=== PATIENT | female | born 1975 | race Caucasian/White ===

== ENCOUNTER 2022-11-25 11:52 | Emergency (ER) | payer BC ==
--- OUTSIDE RECORDS SUMMARY | 2022-11-25 11:58 | XMS REPORT | Continuity of Care Document ---
:1975 Author Organization [facility] t Address [address] [place] [address] Care Team Providers Name Role Phone SLIM COFFMAN Attending Clinician Unavailable Fazal Attending Clinician Unavailable Mitchell Kim Attending Clinician Unavailable Guadalupe Broderick Attending Clinician Unavailable Abbey Armas Attending Clinician Unavailable KOMAL RANGEL Attending Clinician Unavailable Aba Thompson Attending Clinician ABA THOMPSON Attending Clinician Unavailable Lee Ann Patel Attending Clinician Unavailable Fazal Admitting Clinician Unavailable KNOW, DOES_NOT Admitting Clinician Unavailable Guadalupe Broderick Admitting Clinician Unavailable Abbey Armas Admitting Clinician Unavailable Aba Thompson Admitting Clinician ABA THOMPSON Admitting Clinician Unavailable Physician, No Primary or Family Admitting Clinician Unavaila ble Payers Payer Name Policy Type Policy Number Effective Date Expiration Date S aba BCBSTX PPO AND [id number] 2020 2024 00:00:00 OUT OF STATE 00:00:00 [place] [id number] 2020 [place] 00:00:00 Problems Condition Condition Condition Status Onset Resolution Last Treating Co mments Source Name Details Category Date Date Treatment Clinician Date Venous Venous Disease Active [facility] thromboemb thromboemb 6-10 He alth olism olism 00:00: 00 Obesity Obesity Disease Active [facility] (BMI (BMI 6-10 Health 30-39.9) 30-39.9) 00:00: 00 PULMONARY PULMONARY Diagnosis Active 2020-07-02 Memoria EMBOLI EMBOLI 07-01 08:55:00 l Active 13:43: Mclean 07/01/2020 00 [facility] CHEST PAIN CHEST Diagnosis Active 2020-07-01 Memoria PAIN 07-01 20:07:00 l Active 13:43: [facility] - Diagnosis Active 2013-12-01 Memoria LUMBOSACRA LUMBOSACRA 10-10 15:58:00 l L SPO L SPO 00:01: Mclean Active 00 10/10/2013 [facility] [place] Obesity, Obesity, Diagnosis Active 2014-02-13 Memoria unspecifie unspecifie 04:10:55 l d d Active Kareem Diagnosis 02/13/2014 [facility] Screening Screening Diagnosis Active 2014-02-13 Memoria for for 04:10:55 l tobacco tobacco Mclean use use Active Diagnosis 02/13/2014 [facility] Lumbosacra Problem Active 2014-02-13 M emoria l Lumbosacra 04:10:55 l spondylosi l Christian n s without spondylosi myelopathy s without myelopathy Active Problem 02/13/2014 [facility] Lumbar Lumbar Problem Active 2014-02-13 Fab zayra sprain and sprain and 04:10:55 l strain strain Kareem Active Problem 02/13/2014 [facility] Degenerati Degenerat Problem Active 2014-02-13 Memoria on of ion of 04:10:55 l lumbar or lumbar or Herm sidney lumbosacra lumbosacra l l interverte interverte bral disc bral disc Active Problem 02/13/2014 [facility] OTHER OTHER Diagnosis Active 2020-07-02 Mem oria PULMONARY PULMONARY 08:55:00 l EMBOLISM EMBOLISM Christian n WITHOUT WITHOUT ACUTE C ACUTE C Active [facility] Allergies, Adverse Reactions, Alerts Allergy Allergy Status Severity Reaction(s) Onset Inactive Treating Comm ents Source Name Type Date Date Clinician No Known DA Active [facility]24 [place] [facility] No Known DA Active [facility] [place] N[facility] N.K.D.A. Active Info Not Fab zarya Available 11-28 l 00:00: Kareem 00 No Known DA Active [facility] 03-26 [place] [facility] 00:[facility] No Known DA Active [facility] 03-26 [place] [facility] No Known No Known Active Memori a Medicati Medicati l on on Mclean Allergie Allergie s s Social History Social Habit Start Date Stop Date Quantity Comments Source Sexual orientation Method [facility] Gender identity [facility] Alcohol intake 2020-08-12 2020-08-12 Lifetime [facility] 00:00:00 00:00:00 non-drinker (finding) Tobacco use and 2020-08-12 2020-08-12 Never used [facility] exposure 00:00:00 00:00:00 Educationhistory 2014-01-09 2014-01-[address] [facility] 00:00:00 00:00:00 Kareem Sex Ass[birth year] At [birth year] [facility] 00:00:00 00:00:00 Hospital Smoking Status Start Date Stop Date Source Tobacco smoking consumption unknown [facility] Social History [facility] Medications Ordered Filled Start Stop Current Ordering Indication Dosage Frequency Signature Comments Components Source Medication Medication Date Date Medication? Clinician (SIG) Name Name levocetiriz Yes 5mg Take 5 mg U T ine (Xyzal) 6-10 by mouth 1 He alth 5 MG tablet 20:05: (one) time 21 each day in the evening. azelastine Yes .1{spra Administer [place] (Astelin) 6-10 y} 0.1 sprays Heal th 0.1 % nasal 20:03: into each spray 58 nostril every night. eletriptan Yes 40mg Take 40 mg U T (Relpax) 40 6-10 by mouth Heal th MG tablet 20:03: if needed. 58 norethindro Yes .35mg QD Take 0.35 UT ne 6-08 mg by [facility] (Micronor) 00:00: mouth 1 0.35 MG 00 (one) time tablet each day. Xarelto 20 Yes 20mg QD Take 20 mg U T MG tablet 5-21 by mouth 1 Heal th 00:00: (one) time 00 each day. { Yes 1 tab, PO, Memoria (rivaroxaba 4-30 BID-Meals, l n 15 MG 17:22: Take 15 mg Herm sidney Oral Tablet 00 tablets [Xarelto]) twice / 9 daily with (rivaroxaba food for n 20 MG 21 days. Oral Tablet Beginning [Xarelto]) day } Pack 22,take [Xarelto one 20 mg Kit] tablet daily with food for the remainder of therapy., X 30 day, # 1 pkt, 0 Refill(s), Pharmacy: [facility] #[id number], [id number], , 07/01/... { Yes 1 tab, PO, Memoria (rivaroxaba 4-30 BID-Meals, l n 15 MG 17:22: Take 15 mg Herm sidney Oral Tablet 00 tablets [Xarelto]) twice / 9 daily with (rivaroxaba food for n 20 MG 21 days. Oral Tablet Beginning [Xarelto]) day } Pack 22,take [Xarelto one 20 mg Kit] tablet daily with food for the remainder of therapy., X 30 day, # 1 pkt, 0 Refill(s), Pharmacy: [facility] #[id number], 162.56, , 07/01/... { Yes 1 tab, PO, Memoria (rivaroxaba 4-30 BID-Meals, l n 15 MG 17:22: Take 15 mg Herm sidney Oral Tablet 00 tablets [Xarelto]) twice / 9 daily with (rivaroxaba food for n 20 MG 21 days. Oral Tablet Beginning [Xarelto]) day } Pack 22,take [Xarelto one 20 mg Kit] tablet daily with food for the remainder of therapy., X 30 day, # 1 pkt, 0 Refill(s), Pharmacy: [facility] #[id number], 909.56, cm, 07/01/... rivaroxaban No Notes: Fab zayra 4-30 (Same as: l 14:00: Xarelto) Mclean 00 Administer with food Lovenox 0 No Notes: Memoria 4-30 Nurse to l 14:00: ensure Mclean 00 documentat ion of patient education per anticoagul ation policy. (Same as: Lovenox) rivaroxaban No Notes: Fab zayra 4-30 (Same as: l 14:00: Xarelto) Kareem 00 Administer with food Lovenox 0 No Notes: Memoria 4-30 Nurse to l 14:00: ensure Kareem 00 documentat ion of patient education per anticoagul ation policy. (Same as: Lovenox) rivaroxaban No Notes: Fab zayra 4-30 (Same as: l 14:00: Xarelto) Mclean 00 Administer with food Lovenox 0 No Notes: Memoria 4-30 Nurse to l 14:00: ensure Kareem 00 documentat ion of patient education per anticoagul ation policy. (Same as: Lovenox) ketOROLAC 2020-0 No 4 days Memor ia 15 mg/mL 4-30 l injectable 05:00: MEDICATION H ermann solution 00 WASTE Product Size: 30 mg Product Wasted: ___ mg ketOROLAC 2020-0 No 4 days Memor ia 15 mg/mL 4-30 l injectable 05:00: MEDICATION H ermann solution 00 WASTE Product Size: 30 mg Product Wasted: ___ mg ketOROLAC 2020-0 No 4 days Memor ia 15 mg/mL 4-30 l injectable 05:00: MEDICATION H ermann solution 00 WASTE Product Size: 30 mg Product Wasted: ___ mg Azelastine 2020- Yes 137 Memoria hydrochlori 4-30 microgram l de 0.137 04:07: =, Mclean MG/ACTUAT 00 INHALER, Metered PRN, PRN Dose Nasal Congestion Becker | 1-2 sprays, # 1 ea, 0 Refill(s) Azelastine Yes 137 Memoria hydrochlori 4-30 microgram l de 0.137 04:07: =, Kareem MG/ACTUAT 00 INHALER, Metered PRN, PRN Dose Nasal Congestion Becker | 1-2 sprays, # 1 ea, 0 Refill(s) Azelastine Yes 137 Memoria hydrochlori 4-30 microgram l de 0.137 04:07: =, Kareem MG/ACTUAT 00 INHALER, Metered PRN, PRN Dose Nasal Congestion Becker | 1-2 sprays, # 1 ea, 0 Refill(s) valacyclovi Yes 500 mg = 1 Memoria r 500 MG 4-30 tab, PO, l Oral Tablet 04:06: PRN, 0 Herm sidney [Valtrex] 00 Refill(s) valacyclovi Yes 500 mg = 1 Memoria r 500 MG 4-30 tab, PO, l Oral Tablet 04:06: PRN, 0 Herm sidney [Valtrex] 00 Refill(s) valacyclovi Yes 500 mg = 1 Memoria r 500 MG 4-30 tab, PO, l Oral Tablet 04:06: PRN, 0 Herm sidney [Valtrex] 00 Refill(s) eletriptan Yes 40 mg = 1 Me moria 40 MG Oral 4-30 tab, PO, l Tablet 04:05: PRN, 0 Mclean [Relpax] 00 Refill(s) eletriptan Yes 40 mg = 1 Me moria 40 MG Oral 4-30 tab, PO, l Tablet 04:05: PRN, 0 Mclean [Relpax] 00 Refill(s) eletriptan Yes 40 mg = 1 Me moria 40 MG Oral 4-30 tab, PO, l Tablet 04:05: PRN, 0 Mclean [Relpax] 00 Refill(s) {24 No 1 tab, PO, Memoria (Ethinyl 4-30 Daily, 0 l Estradiol 04:04: Refill(s) Her taylor 0.02 MG / 00 norethindro ne acetate 1 MG Oral Tablet) / 4 (Ferrous fumarate 75 MG Oral Tablet) } Pack [August Fe 03/24] { No 1 tab, PO, Memoria (Ethinyl 4-30 Daily, 0 l Estradiol 04:04: Refill(s) Her taylor 0.02 MG / 00 norethindro ne acetate 1 MG Oral Tablet) / 4 (Ferrous fumarate 75 MG Oral Tablet) } Pack [August 03/24] { No 1 tab, PO, Memoria (Ethinyl 4-30 Daily, 0 l Estradiol 04:04: Refill(s) Her taylor 0.02 MG / 00 norethindro ne acetate 1 MG Oral Tablet) / 4 (Ferrous fumarate 75 MG Oral Tablet) } Pack [August 03/24] Dextrose No 12.5 gm, Memor ia 50% Syringe 30 25 mL, l (D50W) 02:46: Route: IVP, Drug Form: INJ, Dosing Weight 81.364, kg, PRN, PRN Blood Glucose Results, Start date: 07/01/20 21:46:00 CDT, Duration: 30 day, Stop date: 07/31/20 21:45:00 CDT, 0 Glucagon No 1 mg, Memoria 07-02 Route: IM, l 02:46: Drug form: PDR/INJ, PRN, Dosing Weight 81.364, kg, PRN Blood Glucose Results, Start date: 07/01/20 21:46:00 CDT, Duration: 30 day, Stop date: 07/31/20 21:45:00 CDT, 0 Ondansetron No Notes: Fab zayra -30 (Same as: l 02:46: Zofran) MEDICATION WASTE Product Size: 4 mg Product Wasted: ___ mg Melatonin No Notes: Memori a -30 (Same as: l 02:46: Melatonin) Acetaminoph No Notes: Do M emoria en 07-02 not exceed l 02:46: 4 gm/day. (Same as: Tylenol) Dextrose 2021-0 No 12.5 gm, Memor ia 50% Syringe 4-30 25 mL, l (D50W) 02:46: Route: Mclean 00 IVP, Drug Form: INJ, Dosing Weight 81.364, kg, PRN, PRN Blood Glucose Results, Start date: 07/01/20 21:46:00 CDT, Duration: 30 day, Stop date: 07/31/20 21:45:00 CDT, 0 Glucagon No 1 mg, Memoria 30 Route: IM, l 02:46: Drug form: Mclean PDR/INJ, PRN, Dosing Weight 81.364, kg, PRN Blood Glucose Results, Start date: 07/01/20 21:46:00 CDT, Duration: 30 day, Stop date: 07/31/20 21:45:00 CDT, 0 Ondansetron No Notes: Fab zayra 4-30 (Same as: l 02:46: Zofran) MEDICATION WASTE Product Size: 4 mg Product Wasted: ___ mg Melatonin No Notes: Memori a 4-30 (Same as: l 02:46: Melatonin) Acetaminoph No Notes: Do M emoria en 4-30 not exceed l 02:46: 4 gm/day. (Same as: Tylenol) Dextrose No 12.5 gm, Memor ia 50% Syringe 4-30 25 mL, l (D50W) 02:46: Route: IVP, Drug Form: INJ, Dosing Weight 81.364, kg, PRN, PRN Blood Glucose Results, Start date: 07/01/20 21:46:00 CDT, Duration: 30 day, Stop date: 07/31/20 21:45:00 CDT, 0 Glucagon No 1 mg, Memoria 4-30 Route: IM, l 02:46: Drug form: Kareem 00 PDR/INJ, PRN, Dosing Weight 81.364, kg, PRN Blood Glucose Results, Start date: 07/01/20 21:46:00 CDT, Duration: 30 day, Stop date: 07/31/20 21:45:00 CDT, 0 Ondansetron No Notes: Fab zayra 07-02 (Same as: l 02:46: Zofran) MEDICATION WASTE Product Size: 4 mg Product Wasted: ___ mg Melatonin No Notes: Memori a 07-02 (Same as: l 02:46: Melatonin) Acetaminoph No Notes: Do M emoria en 07-02 not exceed l 02:46: 4 gm/day. Mclean 00 (Same as: Tylenol) Lovenox No Notes: Memoria 07-02 Nurse to l 02:17: ensure Kareem 00 documentat ion of patient education per anticoagul ation policy. (Same as: Lovenox) Lovenox No Notes: Memoria 07-02 Nurse to l 02:17: ensure Kareem 00 documentat ion of patient education per anticoagul ation policy. (Same as: Lovenox) Lovenox No Notes: Memoria 07-02 Nurse to l 02:17: ensure Mclean 00 documentat ion of patient education per anticoagul ation policy. (Same as: Lovenox) Ketorolac No 4 days Memor ia 07-01 l 23:53: MEDICATION WASTE Product Size: 30 mg Product Wasted: ___ mg Morphine No 4 mg, 2 Memori a 4-29 mL, Route: l 23:53: IVP, Drug form: SOLN, ONCE, Dosing Weight 81.364, kg, Priority: STAT, Start date: 07/01/20 18:53:00 CDT, Stop date: 07/01/20 18:53:00 CDT, 0 Ketorolac No 4 days Memor ia 29 l 23:53: MEDICATION WASTE Product Size: 30 mg Product Wasted: ___ mg Morphine No 4 mg, 2 Memori a 4-29 mL, Route: l 23:53: IVP, Drug form: SOLN, ONCE, Dosing Weight 81.364, kg, Priority: STAT, Start date: 07/01/20 18:53:00 CDT, Stop date: 07/01/20 18:53:00 CDT, 0 Ketorolac No 4 days Memor ia 4-29 l 23:53: MEDICATION WASTE Product Size: 30 mg Product Wasted: ___ mg Morphine No 4 mg, 2 Memori a 4-29 mL, Route: l 23:53: IVP, Drug form: SOLN, ONCE, Dosing Weight 81.364, kg, Priority: STAT, Start date: 07/01/20 18:53:00 CDT, Stop date: 07/01/20 18:53:00 CDT, 0 Saline No Notes: Memoria Flush 0.9% 4-29 (Same as: l 19:01: BD Kareem 00 Posiflush) Saline No Notes: Memoria Flush 0.9% 4-29 (Same as: l 19:01: BD Mclean 00 Posiflush) Saline No Notes: Memoria Flush 0.9% 4-29 (Same as: l 19:01: BD Mclean 00 Posiflush) Minastrin 2013-03 Yes Manuel 1 tablet Me moria 24 fe 2-12 [facility] 04:10[facility] Memor ia 2-12 Fayle l 04:10: Mclean 55 Aleve 2013-03 Yes Manuel 3 tablets Memor ia 2-12 Fayle l 04:10: Kareem 55 ZyrTEC 2013-03 Yes Manuel 1 tablet Memor ia 2-12 Fayle l 04:10: Aleve 2013-03 Yes Manuel 3 tablets Memor ia 2-12 Fayle l 04:10: Kareem 55 Minastrin 2013-03 Yes Manuel 1 tablet Me moria 24 fe 2-12 Fayle l 04:10: Mclean 55 Minastrin 2013-03 Yes Manuel 1 tablet Me moria 24 fe 2-12 Fayle l 04:10: Mclean 55 yrTEC 2013-03 Yes Manuel 1 tablet Memor ia 2-12 Fayle l 04:10: Mclean 55 Aleve 2013-03 Yes Manuel 3 tablets Memor ia 2-12 Fayle l 04:10: Mclean 55 Tramadol Yes Manuel one tab Fab zayra 9-26 Fayle l 00:00: Mclean Valium Yes Manuel 1 tablet Memor ia 9-26 Fayle as needed l 00:00: Kareem 00 Tramadol Yes Manuel one tab Fab zayra 9-26 Fayle l 00:00: Mclean Valium Yes Manuel 1 tablet Memor ia 9-26 Fayle as needed l 00:00: Kareem 00 Tramadol Yes Manuel one tab Fab zayra 9-26 Fayle l 00:00: Mclean Valium Yes Manuel 1 tablet Memor ia 9-26 Fayle as needed l 00:00: Mclean 00 Immunizations Ordered Filled Immunization Date Status Comments Sourc e Immunization Name Name FLUCELVAX QUAD PF 2020-11-[address] [facility] FLUCELVAX QUAD PF 2020-11-[address] [facility] FLUCELVAX QUAD PF Unknown [facility] Vital Signs Vital Name Observation Time Observation Value Comments Source Systolic blood 2020-08-12 19:58:00 123 mm[Hg[facility] Diastolic blood 2020-08-12 19:58:00 77 mm[Hg] [facility] Heart rate 2020-08-12 19:58:00 102 /min [facility] Respiratory rate 2020-08-12 19:58:00 16 /[facility] Body height 2020-08-12 19:58:00 162.6 cm [facility] Body weight 2020-08-12 19:58:00 85.095 [facility] BMI 2020-08-12 19:58:00 32.20 [facility]m2 [facility] Systolic (mm Hg) 2020-07-02 16:18:00 Fab rial Mclean Diastolic (mm Hg) 2020-07-02 16:18:00 Mem orial Kareem Respitory Rate 2020-07-02 16:18:00 Memori al Kareem Temperature Oral (F) 2020-07-02 16:18:00 98.1 F [facility] Mclean Systolic (mm Hg) 2020-07-02 13:07:00 Fab rial Kareem Diastolic (mm Hg) 2020-07-02 13:07:00 Mem orial Kareem Respitory Rate 2020-07-02 13:07:00 Memori al Kareem Temperature Oral (F) 2020-07-02 08:38:00 97.8 F Memorial Kareem Systolic (mm Hg) 2020-07-02 08:21:00 Fab rial Kareem Diastolic (mm Hg) 2020-07-02 08:21:00 Mem orial Kareem Temperature Oral (F) 2020-07-02 08:21:00 97.8 F [facility] Mclean Respitory Rate 2020-07-02 05:00:00 Memori al Kareem Height 2020-07-02 04:13:00 162.56 cm [facility] Kareem Weight 2020-07-02 04:13:00 [facility] Mclean BMI Calculated 2020-07-02 04:13:00 Memori al Kareem Heart Rate 2020-07-02 01:31:00 [facility] Mclean Height 2020-07-01 18:53:00 162.56 cm [facility] Mclean BMI Calculated 2020-07-01 18:53:00 Memori al Kareem Weight 2020-07-01 18:53:00 [facility] Mclean Heart Rate 2020-07-01 18:53:00 [facility] Kareem Weight 2013-11-28 15:00:00 [facility] Mclean Height 2013-11-28 15:00:00 [facility] Mclean Weight 2013-10-10 20:15:00 [facility] Kareem Height 2013-10-10 20:15:00 [facility] Kareem Procedures This patient has no known procedures. Plan of Care Planned Activity Planned Date Details Comments Source Future Scheduled 2022-11-06 [facility] Test 04:48:31 SCREENING [code = BREAST CANCER SCREENING] Future Scheduled 2022-11-06 Screening for [facility] Test 04:48:31 malignant neoplasm of colon (procedure) [code = 993564043] Future Scheduled 2022-11-06 [facility] Test 04:48:31 malignant neoplasm of colon (procedure) [code = 913193666] Future Scheduled 2022-11-06 [facility] 04:48:31 Moderna series) [code = COVID-19 VACCINE (2 - Moderna series)] Future Scheduled 2022-11-06 [facility]UENZA [facility]ACCINE [facility] 04:48:31 (#1) [code = INFLUENZA VACCINE (#1)] Future Scheduled 2022-11-06 [facility] 04:48:31 malignant neoplasm of colon (procedure) [code = 809915564] Future Scheduled 2022-11-06 [facility] 04:48:31 malignant neoplasm of colon (procedure) [code = 474036775] Future Scheduled 2022-11-06 [facility] Test 04:48:31 malignant neoplasm of colon (procedure) [code = 827361797] Future Scheduled 2022-11-06 [facility] Test 04:48:31 malignant neoplasm of cervix (procedure) [code = 188193710] Future Scheduled 2022-10-05 [facility] Test 23:50:12 malignant neoplasm of colon (procedure) [code = 843809505] Future Scheduled 2022-10-05 [facility] 23:50:12 malignant neoplasm of colon (procedure) [code = 902378324] Future Scheduled 2022-10-05 [facility] 23:50:12 malignant neoplasm of colon (procedure) [code = 335324774] Future Scheduled 2022-10-05 [facility] 23:50:12 malignant neoplasm of cervix (procedure) [code = 917182631] Future Scheduled 2022-10-05 [facility]ER [facility] Test 23:50:12 SCREENING [code = BREAST CANCER SCREENING] Future Scheduled 2022-10-05 [facility] Test 23:50:12 malignant neoplasm of colon (procedure) [code = 048582535] Future Scheduled 2022-10-05 [facility] 23:50:12 malignant neoplasm of colon (procedure) [code = 035791712] Future Scheduled 2022-10-05 COVID-19 VACCINE (2 - [facility] 23:50:12 Moderna series) [code = COVID-19 VACCINE (2 - Moderna series)] Future Scheduled 2022-10-05 [facility]ZA [facility]ACCINE [facility] 23:50:12 [code = INFLUENZA VACCINE] Future Scheduled 2022-03-13 [facility]ZA [facility]ACCINE [facility] 10:01:14 [code = INFLUENZA VACCINE] Future Scheduled 2022-03-13 [facility] 10:01:14 malignant neoplasm of cervix (procedure) [code = 747914535] Future Scheduled 2022-03-13 [facility] 10:01:14 SCREENING [code = BREAST CANCER SCREENING] Future Scheduled 2022-03-13 COLONOSCOPY SCREENING [facility] Test 10:01:14 [code = COLONOSCOPY SCREENING] Future Scheduled 2022-03-13 COVID-19 VACCINE (2 - [facility] Test 10:01:14 Moderna series) [code = COVID-19 VACCINE (2 - Moderna series)] Encounters Start End Encounter Admission Attending Care Care Encounter Source Date/Time Date/Time Type Type Clinicians Facility Department ID 2021-08-25 Outpatient [facility] [id number] [place] 09:44:07 [id number] [facility] 2021-08-08 Outpatient [facility] [id number] [place] 11:53:43 [id number] [facility] 2021-07-06 Outpatient [facility] [id number] [place] 16:52:27 [id number] [facility] 2020-08-12 Outpatient MEGHNA [facility] [id number] [place] 15:27:43 [facility] 2020-07-10 [facility] [id number] [place] 03:11:37 [facility] 2022-11-16 2022-11-16 Outpatient FOG_Burke_R AOSM AOSM [id number] Merle 00:00:00 00:00:00 Caleb [id number] [facility] 2022-10-30 2022-10-30 Outpatient FOG_Burke_R AOSM AOSM [id number] Merle 00:00:00 00:00:00 Caleb [id number] [facility] 2022-10-30 2022-10-30 Outpatient FOG_Burke_R AOSM AOSM [id number] Merle 00:00:00 00:00:00 Caleb [id number] [facility] 2022-10-30 2022-10-30 Outpatient FOG_Burke_R AOSM AOSM [id number] Merle 00:00:00 00:00:00 Caleb [id number] [facility] 2022-10-25 2022-10-25 Outpatient JOSE EDUARDO Kim [facility] [id number] [facility] 09:30:00 09:30:00 [place] [facility] 2022-09-28 2022-09-28 Outpatient FOG_Burke_R AOSM AOSM [id number] Merle 00:00:00 00:00:00 Caleb [id number] [facility] 2022-09-28 2022-09-28 Outpatient FOG_Burke_R AOSM AOSM [id number] Merle 00:00:00 00:00:00 Caleb [id number] [facility] 2022-09-27 2022-09-27 Outpatient FOG_Burke_R AOSM AOSM [id number] Merle 00:00:00 00:00:00 Caleb [id number] [facility] 2022-09-26 2022-09-26 Outpatient FOG_Burke_R AOSM AOSM [id number] Merle 00:00:00 00:00:00 Caleb [id number] [facility] 2022-09-15 2022-09-15 Outpatient FOG_Burke_R AOSM AOSM [id number] Merle 00:00:00 00:00:00 Caleb [id number] [facility] 2022-09-15 2022-09-15 Outpatient FOG_Burke_R AOSM AOSM [id number] Merle 00:00:00 00:00:00 Caleb [id number] [facility] 2022-09-13 2022-09-13 Outpatient FOG_Burke_R AOSM AOSM [id number] Merle 00:00:00 00:00:00 Caleb [id number] [facility] 2022-09-13 2022-09-13 Outpatient FOG_Burke_R AOSM AOSM [id number] Merle 00:00:00 00:00:00 Caleb [id number] [facility] 2022-09-12 2022-09-12 Outpatient FOG_Burke_R AOSM AOSM [id number] Merle 00:00:00 00:00:00 Caleb [id number] [facility] 2022-03-09 2022-03-09 Outpatient JOSE EDUARDO Broderick [facility] JOYCELYN LA[id number] [facility] 12:00:00 12:00:00 Guadalupe 61 [facility] 2021-09-08 2021-09-09 Inpatient JOSE EDUARDO Broderick [facility] [id number] [facility] 11:20:00 10:52:00 Gu[place]upe [id number] [facility] 2021-09-06 2021-09-09 In[address] EDUARDO [facility] [id number] [facility] 12:30:00 10:52:00 Guadalupe [address] [facility] [address] [facility] 2021-03-03 2021-03-03 Outpatient Abbey Ross [facility] JOYCELYN LA0 [id number] [facility] 12:00:00 12:00:00 12 [facility] 2020-11-25 2020-11-25 Outpatient JUAN CARLOS, [facility] [id number] [place] 00:00:00 00:00:00 KOMAL hooks 2020-08-12 2020-08-12 Office ELIOT Coffman [facility] [id number] [place] 14:54:12 15:09:12 Visit Slim [facility] [id number] [id number] 2020-07-01 2020-07-02 Observatio nullFlavo [facility] [id number] Memoria 18:43:46 18:00:00 n r Kareem 00 l [facility] 2020-07-01 2020-07-02 Observatio nullFlavo [facility] 8519 [id number] Memoria 18:43:46 18:00:00 n r Kareem 00 l [facility] 2020-07-01 2020-07-[address] [id number] 13:43:46 13:00:00 Aba 00 2020-07-01 2020-07-02 Outpatient DonnaYAMELPL [facility] [id number] 13:43:46 13:00:00 Aba 2020-07-01 2020-07-02 Outpatient E DELIA, YAMELBL MED [id number] [facility] 13:43:00 13:00:00 ABA 2019-09-26 2019-09-26 Outpatient JOSE EDUARDO Patel, HCAPM JOYCELYN [id number] [facility] 12:00:00 12:00:00 Lee Ann Giang [facility] 2013-11-28 2013-11-28 CONFIRMED nullFlavo Varina [id number] 31-9 Memoria 15:00:00 15:00:00 r Neurologica [id number]-9 l l [place] [id number] H ermann [id number] 2013-11-28 2013-11-28 CONFIRMED nullFlavo [place] 56fec8 f3-f Memoria 15:00:00 15:00:00 r Neurologica [id number] l l [place] [id number] H ermann [id number] 2013-11-28 2013-11-28 CONFIRMED nullFlavo [place] 56fec8 f3-f Memoria 15:00:00 15:00:00 r Neurologica [id number] l l [place] [id number]-[id number] H ermann [id number] 2013-11-28 2013-11-28 CONFIRMED nullFlavo [place] [id number] 31-9 Memoria 15:00:00 15:00:00 r Neurologica [id number]-9 l l [place] [id number] H ermann 802c61 2013-11-28 2013-11-28 Outpatient [facility] [id number] eClinic 09:00:00 09:00:00 Neurologi Neurologica alWorks gisell l [place] 2013-10-10 2013-10-10 lvm to cb nullFlavo [place] [id number] 6a-f Memoria 20:15:00 20:15:00 r Neurologica 8e1-61pm-l l l [place] [id number] ermann b92b2e 2013-10-10 2013-10-10 lvm to cb nullFlavo [place] 288f3a 33-9 Memoria 20:15:00 20:15:00 r Neurologica [id number]-b l l [place] [id number] Ashutosh brody [id number] 2013-10-10 2013-10-10 [facility] [place] 288f3a 33-9 Memoria 20:15:00 20:15:00 r Neurologica 867-465c-b l l [place] [id number]-620bvy Ashutosh brody 0b9b70 2013-10-10 2013-10-10 [facility] [place] [id number] 6a-f [facility] 20:15:00 20:15:00 r Neurologica 4r9-73lh-r l l [place] [id number] Ashutosh brody b92b2e 2013-10-10 2013-10-10 Outpatient [facility] [id number] eClinic 14:15:00 14:15:00 Neurologi Neurologica alWorks [facility] [place] Results Test Description Test Time Test Comments Results Result [facility] e Comments - XR FLUORO FOR 2022-10-30 SPINE INJ 17:31:00 [facility] 1975 Sex: F Patient Name: HUSSAIN PEARCE Unit No: [id number] EXAMS: CPT CODE: [id number] XR FLUORO FOR SPINE INJ [id number] DIAGNOSTIC CERVICAL TRANSFORAMINAL EPIRADICULAR INJECTION PREOPERATIVE DIAGNOSIS: Cervical radiculitis.. POSTOPERATIVE DIAGNOSIS: Same as above PROCEDURES PERFORMED: Fluoroscopically guided needle localization of the right C6 spinal nerve with transforaminal epidurogram and epidural injection of local anesthetic and steroid. FINDINGS: Preinjection VAS 7/10. Postinjection VAS 0/10. Steroid response pending follow-up. ESTIMATED BLOOD LOSS: Minimal ANESTHESIA: TIVA COMPLICATIONS: None. DETAILS OF PROCEDURE: After obtaining stable vital signs, informed consent and IV access, with no contraindications, the patient was taken to the operating room and placed in a 15 degree head up supine position with all extremities padded and appropriate monitors placed. The patient was sterilely prepped and draped over the neck. Using fluoroscopic visualization, the insertion site was marked for anterolateral paravertebral approach and using standard technique, a 27 gauge needle was advanced until contacting the corresponding superior articular process without paresthesias. Isovue-300 contrast 0.5 mL was injected incrementally with digital subtraction to produce the epidurogram. There were no signs of intravascular or intrathecal uptake. Lidocaine 4% 0.8 mL with Decadron 8 mg was then injected incrementally with frequent negative aspirations. Again, there were no signs of intravascular or intrathecal uptake. The needle was removed and the patient was taken to the PACU in good condition. Image: Image 1 at 1731 Reported and signed by: ANU UNGER MD CC: Mitchell Kim MD Technologist: BOBO FORBES ARRT Transcribed D/ (173) [facility] [place] NAME: HUSSAIN PEARCE [address] [facility] PHYS: Mitchell Bernal MD [place], [place] [address] : 1975 AGE: 47 SEX: F LOC: [place] PHONE #: [phone] EXAM DATE: 10/25/2022 STATUS: [facility] FAX #: [phone] RAD #: D/C DT PAGE 1 Signed Report Patient Name: HUSSAIN PEARCE Unit No: [id number] EXAMS: CPT CODE: [id number] XR FLUORO FOR SPINE INJ 62863 (Continued) Orig Print D/T: S: 10/30/2022 (173) [facility] NAME: HUSSAIN PEARCE [address] [facility] PHYS: Mitchell Bernal MD [place], [place] [address] : 1975 AGE: 47 SEX: F LOC: [place] PHONE #: [phone] EXAM DATE: 10/25/2022 STATUS: [facility] FAX #: [phone] RAD #: D/C DT PAGE 2 Signed Report SURGICAL 2021-09-12 17:17:00 Test Item Value Reference Range Interpretation Comme nts SURGICAL RUN (test DATE: 09/12/21 [facility] PAGE 1 RUN TIME: 1717 Specimen Inquiry RUN USER: INTERFACE code = LINH SR) ENT: HUSSAIN PEARCE LOC: U #: [id number] AGE/SX: 46/F ROOM: [facility] RE09/08/21[facility] DR: Guadalupe Broderick MD : 75 BED: A DIS: 09/09/21 STATUS: DIS Francheska TLOC: SPEC #: [id number] RECD: 09/08/21 STATUS: [place] REQ #: [id number] JOHN: 09/08/[address]: Guadalupe Broderick MD E NTERED: 09/08/21 SP TYPE: SURGICAL OTHR DR: Abbey Armas NP ORDERED: ANATOMIC SPEC, SPEC TRACK, [id number] COPIES TO: Abbey Armas NP [address] [facility] [address], [address] [place] [address] [phone] [email or web address] Guadalupe Broderick MD [address], [address] [place] [address] PROCEDURES: [id number] (09/12/21) TISSUES: A. UTERUS - UTERUS, CERVIX, BILATERAL TUBES NANCI L DIAGNOSIS UTERUS AND BILATERAL FALLOPIAN TUBES, HYSTERECTOMY WITH BILATERAL SALPINGECTOMY:- 89 gram specimen- disordered proliferative endometrium; negative for hyperplasia or malignancy -a denomyosis, extensive-leiomyoma measuring 3 mm in greatest dimension-mild chronic cervi citis; negative for dysplasia or malignancy- bilateral fallopian tubes with congestion and ed chris GROSS DESCRIPTION Specimen received in formalin, labeled with patient's name, MRN, date of and uterus,cervix, bilateral tubes. It consists of a hysterectomy specimen with a ttached leftfallopian tube and a separate fallopian tube in container weighing in aggreg ate 89 g. Uterus measures 7.7 cm in length from fundus to distal most portion of exocervix ,4 .6 cm inmaximum cornu to cornu width and 3.8 cm anteroposteriorly. Serosa is montelongo-brown focallyc ongested and smooth. Cervix is 2.7 cm in length, os is circular and 0.7 cm in diameter. Mucosa a t the ectocervix is purple-loo edematous. cervical canal has montelongo-loo rugatedappearance. Endometrial cavity is 4.5 cm in length and 2.2 cm in maximum width. Endometrium is montelongo-pink 0.1 cm in thickness. It is focally congested and slightlyirregular. Myometrium is montelongo-pink and u p to 1.9 cm in thickness. Left fallopian tube withfimbria is 5.4 cm in length and 0.4-0.7 cm in diameter. Serosa is montelongo-brown to dark redcongested and smooth. Sectioning reveals a patent lumen. Separate fallopian tube withfimbria is 4.7 cm in length and 0.4-0.7 cm in diameter. Sero sa is montelongo-brown to dark red CONTINUED ON NEXT PAGE RUN DATE: 09/12/21 [facility] PAGE 2 RUN TIME: 1716 Specimen Inquiry RUN USER: INTERFACE SPEC #: [id number] PATIENT: HUSSAIN PEARCE #[id number] (Continued) ------- GROSS DESCRIPTION (C ontinued) smooth. Sectioning reveals a patent lumen. Transcript Clerk sections are submitted asfol lows: A1-A2 anterior and posterior cervix A3-A4 anterior endomyometrium, 1 full-thick ness section each A5-A6 posterior endomyometrium 1 full-thickness section each A7 left fallopi an tube A8 right fallopian tubeTechnical component performed at [id number], [place] [address] Unless gross only, the diagnosis is based upon microscopic examination.Immu nohistochemistry: This test was developed and its performance characteristicsdetermined by this laboratory. It has not been approved nor does it need approval by Colin FDA. Appropriate po sitive and negative controls are reviewed and judged to beacceptable. This laborator y is certified under the Clinical Laboratory ImprovementAmendments (CLIA-88) as qualified to pe rform high complexity clinical laboratory testing. CLINICAL INFORMATION 1551/1551, ABNORMAL BLEEDING, HERNIA -- Signed SIGNATURE ON FILE Stella Singhira 09/12/21 5937 END OF REPORT CBC W/AUTO [id number] 05:22:00 Test Item Value Reference Range Interpretation Comments WHITE BLOOD CELL (test code = WBC) 13.9 K/mm3 6.5-12.3 H RED BLOOD CELL (test code = RBC) 4.06 M/mm3 3.51-4.69 N HEMOGLOBIN (test code = HGB) 11.8 g/dL 10.1-13.8 N HEMATOCRIT (test code = HCT) 35.3 % 32.5-41.8 N MEAN CELL VOLUME (test code = MCV) 86.9 fL 84.6-96.6 N MEAN CELL HGB (test code = MCH) 29.1 pg 27.3-33.9 N MEAN CELL HGB CONCETRATION (test 33.4 gm/dL 32.0-34.2 N code = MCHC) RED CELL DISTRIBUTION WIDTH (test 13.2 % 12.2-16.3 N code = RDW) PLATELET COUNT (test code = PLT) 344 K/mm3 134-363 N MEAN PLATELET VOLUME (test code = 9.0 fL 9.2-12.7 L MPV) NEUTROPHIL % (test code = NT%) 81.5 % 57.9-77.3 H LYMPHOCYTE % (test code = LY%) 12.6 % 14.5-29.7 L MONOCYTE % (test code = MO%) 5.5 % 3.6-10.2 N EOSINOPHIL % (test code = EO%) 0.0 % 0.0-3.0 N BASOPHIL % (test code = BA%) 0.1 % 0.1-0.9 N NEUTROPHIL # (test code = NT#) 11.4 K/mm3 LYMPHOCYTE # (test code = LY#) 1.8 K/mm3 MONOCYTE # (test code = MO#) 0.8 K/mm3 EOSINOPHIL # (test code = EO#) 0 K/mm3 BASOPHIL # (test code = BA#) 0.0 K/mm3 RBC MORPHOLOGY REQUIRED (test code NORMAL NORMAL = RBCM) PLATELET MORPHOLOGY REQUIRED (test NORMAL NORMAL code = PLTMR) BASIC METABOLIC [id number] 19:33:00 Test Item Value Reference Range Interpretation Comments SODIUM (test code = NA) 140 mEq/L 135-145 N POTASSIUM (test code = K) 4.4 mEq/L 3.5-5.0 N CHLORIDE (test code = CL) 104 mEq/L 100-115 N CARBON DIOXIDE (test code = CO2) 27 mEq/L 22-31 N ANION GAP (test code = GAP) 13.40 10-20 N GLUCOSE (test code = GLU) 107 mg/dL 65-110 N BLOOD UREA NITROGEN (test code = 10 mg/dL 7-18 N BUN) CREATININE (test code = CREAT) 0.8 mg/dL 0.5-1.0 N CALCIUM (test code = CA) 8.5 mg/dL 8.4-10.2 N GLOMERULAR FILTRATION RATE (test 77 ml/min >60 N code = GFR) HCG SERUM [id number] 19:33:00 Test Item Value Reference Range Interpretation Comments HCG SERUM QUAL (test code = HCGQL) NEGATIVE COVID 19 Asymptomatic IH [id number] 18:16:00 Test Item Value Reference Range Interpretation Comments COVID 19 NEGATIVE NEGATIVE This test has b een Asymptomatic IH AG authorize d only for the (test code = detection ofpro teins from COVNONPUIAG) SARS-CoV-2, not for any other viruses orpathogens. Ne gative results should be treated as presumptive andconfirmed wi th a molecular assay , if necessary for patientmanageme nt. Negative result s do not rule out COVID- 19 andshould not b e used as the sole basis for treatment orpat ient management deci sions, including infec tion controldecision s. Negative result s should be considered i n thecontext of a patient's recent exposure s, history and thepresence of clinical signs and symptoms consis tent withCOVID-19. T his test has not been FD A cleared or approved; th e test hasbeen authori zed by FDA under an Emerge ncy Use Authorization(E UA) for use by garrisonato john certified under the CLIA thatmeet the re quirements to perform mode rate, high or waivedcomple xity tests. This agustina t is authorized for use at thePoint of Car e (POC), i.e., in patien t care settingsoperati ng under a CLIA Certificat e of Waiver, Certifi nimisha ofCompliance, o r Certificate of Accreditation. This test is only authori zed for the duration of thedeclaration that circumstances e xist justifying theauthorizatio n of emergency use o f in vitro diagnostic test sfor detection and/o r diagnosis of CO VID-19 under Syzyoez61 4(b)(1) of the Act, 21 U.S .C. 360bbb-3(b)(1), unless theauthorizatio n is terminated or r evoked sooner. CBC W/AUTO [id number] 17:04:00 Test Item Value Reference Range Interpretation Comments WHITE BLOOD CELL (test code = WBC) 7.2 K/mm3 6.5-12.3 N RED BLOOD CELL (test code = RBC) 4.24 M/mm3 3.51-4.69 N HEMOGLOBIN (test code = HGB) 12.2 g/dL 10.1-13.8 N HEMATOCRIT (test code = HCT) 37.6 % 32.5-41.8 N MEAN CELL VOLUME (test code = MCV) 88.7 fL 84.6-96.6 N MEAN CELL HGB (test code = MCH) 28.8 pg 27.3-33.9 N MEAN CELL HGB CONCETRATION (test 32.4 gm/dL 32.0-34.2 N code = MCHC) RED CELL DISTRIBUTION WIDTH (test 13.0 % 12.2-16.3 N code = RDW) PLATELET COUNT (test code = PLT) 387 K/mm3 134-363 H MEAN PLATELET VOLUME (test code = 9.9 fL 9.2-12.7 N MPV) NEUTROPHIL % (test code = NT%) 52.3 % 57.9-77.3 L LYMPHOCYTE % (test code = LY%) 35.5 % 14.5-29.7 H MONOCYTE % (test code = MO%) 8.4 % 3.6-10.2 N EOSINOPHIL % (test code = EO%) 3.0 % 0.0-3.0 N BASOPHIL % (test code = BA%) 0.7 % 0.1-0.9 N NEUTROPHIL # (test code = NT#) 3.8 K/mm3 LYMPHOCYTE # (test code = LY#) 2.6 K/mm3 MONOCYTE # (test code = MO#) 0.6 K/mm3 EOSINOPHIL # (test code = EO#) 0.22 K/mm3 BASOPHIL # (test code = BA#) 0.1 K/mm3 RBC MORPHOLOGY REQUIRED (test code NORMAL NORMAL = RBCM) PLATELET MORPHOLOGY REQUIRED (test NORMAL NORMAL code = PLTMR) [employer] [id number] 08:33:00 Test Item Value Reference Range Interpretation Comments Magnesium Lvl (test code = Magnesium 2.5 1.8-2.4 Lvl) [facility] [email or web address] [id number] 08:33:00 Test Item Value Reference Range Interpretation Comments Glucose Lvl (test code = Glucose Lvl) 106 70-[address] [facility] [email or web address] [id number] 08:33:00 Test Item Value Reference Range Interpretation Comments BUN (test code = BUN) 10 7-[address] [facility] Patient Home Monitoring2021-04-30 08:33:00 Test Item Value Reference Range Interpretation Comments Creatinine Lvl (test code = Creatinine 0.66 0.50-1.40 Lvl) [facility] [email or web address] [id number] 08:33:00 Test Item Value Reference Range Interpretation Comments Sodium Lvl (test code = Sodium Lvl) 134 135-145 [place] 331651-04-30 08:33:00 Test Item Value Reference Range Interpretation Comments Potassium Lvl (test code = Potassium 3.7 3.5-5.1 Lvl) [place] 331651-04-30 08:33:00 Test Item Value Reference Range Interpretation Comments Chloride Lvl (test code = Chloride Lvl) 103 95-109 [place] 331651-04-30 08:33:00 Test Item Value Reference Range Interpretation Comments CO2 (test code = CO2) 26 24-32 [place] 331651-04-30 08:33:00 Test Item Value Reference Range Interpretation Comments Calcium Lvl (test code = Calcium Lvl) 9.0 8.5-10.5 [place] 331651-04-30 08:33:00 Test Item Value Reference Range Interpretation Comments AGAP (test code = AGAP) 8.7 10.0-20.0 [place] 331651-04-30 08:33:00 Test Item Value Reference Range Interpretation Comments eGFR (test code = eGFR) 107 [place] 092331-04-30 08:33:00 Test Item Value Reference Range Interpretation Comments WBC (test code = WBC) 10.7 3.7-10.[address]04-30 08:33:00 Test Item Value Reference Range Interpretation Comments RBC (test code = RBC) 4.15 4.20-5.40 [place] [address]-04-30 08:33:00 Test Item Value Reference Range Interpretation Comments Hgb (test code = Hgb) 12.1 12.0-16.0 [place] [address]-04-30 08:33:00 Test Item Value Reference Range Interpretation Comments Hct (test code = Hct) 35.2 36.0-48.[address]04-30 08:33:00 Test Item Value Reference Range Interpretation Comments MCV (test code = MCV) 85.0 80.0-98.0 [place] [address]-04-30 08:33:00 Test Item Value Reference Range Interpretation Comments MCH (test code = MCH) 29.3 pg 27.0-31.0 [place] [address]-04-30 08:33:00 Test Item Value Reference Range Interpretation Comments MCHC (test code = MCHC) 34.5 32.0-36.0 [place] 092331-04-30 08:33:00 Test Item Value Reference Range Interpretation Comments RDW (test code = RDW) 13.2 11.5-14.5 [place] 092331-04-30 08:33:00 Test Item Value Reference Range Interpretation Comments Platelet (test code = Platelet) 436 133-450 [place] 092331-04-30 08:33:00 Test Item Value Reference Range Interpretation Comments MPV (test code = MPV) 6.8 7.4-10.4 [place] 092331-04-30 08:33:00 Test Item Value Reference Range Interpretation Comments PT (test code = PT) 12.7 s 12.0-14.7 [place] [address]-04-30 08:33:00 Test Item Value Reference Range Interpretation Comments INR (test code = INR) 0.96 1 0.85-1.17 [place] 092331-04-30 08:33:00 Test Item Value Reference Range Interpretation Comments PTT (test code = PTT) 33.2 s 22.9-35.8 [place] 092331-04-30 08:33:00 Test Item Value Reference Range Interpretation Comments Segs (test code = Segs) 62.4 45.0-75.0 [place] 092331-04-30 08:33:00 Test Item Value Reference Range Interpretation Comments Lymphocytes (test code = Lymphocytes) 28.6 20.0-40.0 [place] 092331-04-30 08:33:00 Test Item Value Reference Range Interpretation Comments Monocytes (test code = Monocytes) 7.4 2.0-12.0 [place] [address]-04-30 08:33:00 Test Item Value Reference Range Interpretation Comments Eosinophils (test code = 0.9 See_Comment [A utomated message] The Eosinophils) system which ge nerated this result tra nsmitted reference range : <=4.0. The reference r gilda was not used to int erpret this result as normal/abnormal . [place] 092331-04-30 08:33:00 Test Item Value Reference Range Interpretation Comments Basophils (test code = 0.7 See_Comment [Aut omated message] The Basophils) system which ge nerated this result tra nsmitted reference range : <=1.0. The reference r gilda was not used to int erpret this result as normal/abnormal . [address]04-30 08:33:00 Test Item Value Reference Range Interpretation Comments Neutrophils # (test code = Neutrophils 6.7 1.5-8.1 #) [address]04-30 08:33:00 Test Item Value Reference Range Interpretation Comments Lymphocytes # (test code = Lymphocytes 3.1 1.0-5.5 #) [address]04-30 08:33:00 Test Item Value Reference Range Interpretation Comments Monocytes # (test code 0.8 See_Comment [Aut omated message] The = Monocytes #) system which generated this result tra nsmitted reference range : <=0.8. The reference r gilda was not used to int erpret this result as normal/abnormal . [place] [address]-04-30 08:33:00 Test Item Value Reference Range Interpretation Comments Eosinophils # (test code 0.1 See_Comment [A utomated message] The = Eosinophils #) system whic h generated this result tra nsmitted reference range : <=0.5. The reference r gilda was not used to int erpret this result as normal/abnormal . [place] [address]-04-30 08:33:00 Test Item Value Reference Range Interpretation Comments Basophils # (test code 0.1 See_Comment [Aut omated message] The = Basophils #) system which generated this result tra nsmitted reference range : <=0.2. The reference r gilda was not used to int erpret this result as normal/abnormal . [facility] [id number] 08:33:00 Test Item Value Reference Range Interpretation Comments Magnesium Lvl (test code = Magnesium 2.5 1.8-2.4 Lvl) [place] 331651-04-30 08:33:00 Test Item Value Reference Range Interpretation Comments Glucose Lvl (test code = Glucose Lvl) 106 70-[address]04-30 08:33:00 Test Item Value Reference Range Interpretation Comments BUN (test code = BUN) 10 7-22 [facility] [id number] 08:33:00 Test Item Value Reference Range Interpretation Comments Creatinine Lvl (test code = Creatinine 0.66 0.50-1.40 Lvl) [place] 331651-04-30 08:33:00 Test Item Value Reference Range Interpretation Comments Sodium Lvl (test code = Sodium Lvl) 134 135-145 [place] 331651-04-30 08:33:00 Test Item Value Reference Range Interpretation Comments Potassium Lvl (test code = Potassium 3.7 3.5-5.1 Lvl) [place] 331651-04-30 08:33:00 Test Item Value Reference Range Interpretation Comments Chloride Lvl (test code = Chloride Lvl) 103 95-109 [place] 331651-04-30 08:33:00 Test Item Value Reference Range Interpretation Comments CO2 (test code = CO2) 26 24-32 [place] 331651-04-30 08:33:00 Test Item Value Reference Range Interpretation Comments Calcium Lvl (test code = Calcium Lvl) 9.0 8.5-10.5 [place] 331651-04-30 08:33:00 Test Item Value Reference Range Interpretation Comments AGAP (test code = AGAP) 8.7 10.0-20.0 [place] 331651-04-30 08:33:00 Test Item Value Reference Range Interpretation Comments eGFR (test code = eGFR) 107 [place] 092331-04-30 08:33:00 Test Item Value Reference Range Interpretation Comments WBC (test code = WBC) 10.7 3.7-10.4 [place] 092331-04-30 08:33:00 Test Item Value Reference Range Interpretation Comments RBC (test code = RBC) 4.15 4.20-5.40 [place] [address]-04-30 08:33:00 Test Item Value Reference Range Interpretation Comments Hgb (test code = Hgb) 12.1 12.0-16.0 [place] [address]-04-30 08:33:00 Test Item Value Reference Range Interpretation Comments Hct (test code = Hct) 35.2 36.0-48.0 [place] [address]-04-30 08:33:00 Test Item Value Reference Range Interpretation Comments MCV (test code = MCV) 85.0 80.0-98.0 [place] [address]-04-30 08:33:00 Test Item Value Reference Range Interpretation Comments MCH (test code = MCH) 29.3 pg 27.0-31.0 [place] 092331-04-30 08:33:00 Test Item Value Reference Range Interpretation Comments MCHC (test code = MCHC) 34.5 32.0-36.0 [place] 092331-04-30 08:33:00 Test Item Value Reference Range Interpretation Comments RDW (test code = RDW) 13.2 11.5-14.5 [place] 092331-04-30 08:33:00 Test Item Value Reference Range Interpretation Comments Platelet (test code = Platelet) 436 133-450 [place] 092331-04-30 08:33:00 Test Item Value Reference Range Interpretation Comments MPV (test code = MPV) 6.8 7.4-10.4 [place] 092331-04-30 08:33:00 Test Item Value Reference Range Interpretation Comments PT (test code = PT) 12.7 s 12.0-14.7 [place] 092331-04-30 08:33:00 Test Item Value Reference Range Interpretation Comments INR (test code = INR) 0.96 1 0.85-1.17 [place] [address]-04-30 08:33:00 Test Item Value Reference Range Interpretation Comments PTT (test code = PTT) 33.2 s 22.9-35.8 [place] 092331-04-30 08:33:00 Test Item Value Reference Range Interpretation Comments Segs (test code = Segs) 62.4 45.0-75.0 [place] 092331-04-30 08:33:00 Test Item Value Reference Range Interpretation Comments Lymphocytes (test code = Lymphocytes) 28.6 20.0-40.0 [place] [address]-04-30 08:33:00 Test Item Value Reference Range Interpretation Comments Monocytes (test code = Monocytes) 7.4 2.0-12.0 [place] [address]-04-30 08:33:00 Test Item Value Reference Range Interpretation Comments Eosinophils (test code = 0.9 See_Comment [A utomated message] The Eosinophils) system which ge nerated this result tra nsmitted reference range : <=4.0. The reference r gilda was not used to int erpret this result as normal/abnormal . [place] 092331-04-30 08:33:00 Test Item Value Reference Range Interpretation Comments Basophils (test code = 0.7 See_Comment [Aut omated message] The Basophils) system which ge nerated this result tra nsmitted reference range : <=1.0. The reference r gilda was not used to int erpret this result as normal/abnormal . [place] 092331-04-30 08:33:00 Test Item Value Reference Range Interpretation Comments Neutrophils # (test code = Neutrophils 6.7 1.5-8.1 #) [place] 092331-04-30 08:33:00 Test Item Value Reference Range Interpretation Comments Lymphocytes # (test code = Lymphocytes 3.1 1.0-5.5 #) [place] 092331-04-30 08:33:00 Test Item Value Reference Range Interpretation Comments Monocytes # (test code 0.8 See_Comment [Aut omated message] The = Monocytes #) system which generated this result tra nsmitted reference range : <=0.8. The reference r gilda was not used to int erpret this result as normal/abnormal . [place] 092331-04-30 08:33:00 Test Item Value Reference Range Interpretation Comments Eosinophils # (test code 0.1 See_Comment [A utomated message] The = Eosinophils #) system whic h generated this result tra nsmitted reference range : <=0.5. The reference r gilda was not used to int erpret this result as normal/abnormal . [place] 092331-04-30 08:33:00 Test Item Value Reference Range Interpretation Comments Basophils # (test code 0.1 See_Comment [Aut omated message] The = Basophils #) system which generated this result tra nsmitted reference range : <=0.2. The reference r gilda was not used to int erpret this result as normal/abnormal . [facility] [id number] 08:33:00 Test Item Value Reference Range Interpretation Comments Magnesium Lvl (test code = Magnesium 2.5 1.8-2.4 Lvl) [facility] [id number] 08:33:00 Test Item Value Reference Range Interpretation Comments Glucose Lvl (test code = Glucose Lvl) 106 70-99 [place] 331651-04-30 08:33:00 Test Item Value Reference Range Interpretation Comments BUN (test code = BUN) 10 7-22 [place] 331651-04-30 08:33:00 Test Item Value Reference Range Interpretation Comments Creatinine Lvl (test code = Creatinine 0.66 0.50-1.40 Lvl) [place] 331651-04-30 08:33:00 Test Item Value Reference Range Interpretation Comments Sodium Lvl (test code = Sodium Lvl) 134 135-145 [place] 331651-04-30 08:33:00 Test Item Value Reference Range Interpretation Comments Potassium Lvl (test code = Potassium 3.7 3.5-5.1 Lvl) [place] 331651-04-30 08:33:00 Test Item Value Reference Range Interpretation Comments Chloride Lvl (test code = Chloride Lvl) 103 95-109 [place] 331651-04-30 08:33:00 Test Item Value Reference Range Interpretation Comments CO2 (test code = CO2) 26 24-32 [place] 331651-04-30 08:33:00 Test Item Value Reference Range Interpretation Comments Calcium Lvl (test code = Calcium Lvl) 9.0 8.5-10.5 [place] 331651-04-30 08:33:00 Test Item Value Reference Range Interpretation Comments AGAP (test code = AGAP) 8.7 10.0-20.0 [place] 331651-04-30 08:33:00 Test Item Value Reference Range Interpretation Comments eGFR (test code = eGFR) 107 [place] 092331-04-30 08:33:00 Test Item Value Reference Range Interpretation Comments WBC (test code = WBC) 10.7 3.7-10.4 [place] 092331-04-30 08:33:00 Test Item Value Reference Range Interpretation Comments RBC (test code = RBC) 4.15 4.20-5.40 [place] 092331-04-30 08:33:00 Test Item Value Reference Range Interpretation Comments Hgb (test code = Hgb) 12.1 12.0-16.[address]04-30 08:33:00 Test Item Value Reference Range Interpretation Comments Hct (test code = Hct) 35.2 36.0-48.0 [place] 092331-04-30 08:33:00 Test Item Value Reference Range Interpretation Comments MCV (test code = MCV) 85.0 80.0-98.0 [place] 092331-04-30 08:33:00 Test Item Value Reference Range Interpretation Comments MCH (test code = MCH) 29.3 pg 27.0-31.0 [place] 092331-04-30 08:33:00 Test Item Value Reference Range Interpretation Comments MCHC (test code = MCHC) 34.5 32.0-36.0 [place] 092331-04-30 08:33:00 Test Item Value Reference Range Interpretation Comments RDW (test code = RDW) 13.2 11.5-14.5 [place] 092331-04-30 08:33:00 Test Item Value Reference Range Interpretation Comments Platelet (test code = Platelet) 436 133-450 [place] 092331-04-30 08:33:00 Test Item Value Reference Range Interpretation Comments MPV (test code = MPV) 6.8 7.4-10.4 [place] [address]-04-30 08:33:00 Test Item Value Reference Range Interpretation Comments PT (test code = PT) 12.7 s 12.0-14.7 [place] 092331-04-30 08:33:00 Test Item Value Reference Range Interpretation Comments INR (test code = INR) 0.96 1 0.85-1.17 [place] 092331-04-30 08:33:00 Test Item Value Reference Range Interpretation Comments PTT (test code = PTT) 33.2 s 22.9-35.8 [place] [address]-04-30 08:33:00 Test Item Value Reference Range Interpretation Comments Segs (test code = Segs) 62.4 45.0-75.0 [place] [address]-04-30 08:33:00 Test Item Value Reference Range Interpretation Comments Lymphocytes (test code = Lymphocytes) 28.6 20.0-40.0 [place] 092331-04-30 08:33:00 Test Item Value Reference Range Interpretation Comments Monocytes (test code = Monocytes) 7.4 2.0-12.[address]04-30 08:33:00 Test Item Value Reference Range Interpretation Comments Eosinophils (test code = Eosinophils) 0.9 <=4.0 [place] [address]-04-30 08:33:00 Test Item Value Reference Range Interpretation Comments Basophils (test code = Basophils) 0.7 <=1.0 [address]04-30 08:33:00 Test Item Value Reference Range Interpretation Comments Neutrophils # (test code = Neutrophils 6.7 1.5-8.1 #) [place] 092331-04-30 08:33:00 Test Item Value Reference Range Interpretation Comments Lymphocytes # (test code = Lymphocytes 3.1 1.0-5.5 #) [place] 092331-04-30 08:33:00 Test Item Value Reference Range Interpretation Comments Monocytes # (test code = Monocytes #) 0.8 <=0.[address]04-30 08:33:00 Test Item Value Reference Range Interpretation Comments Eosinophils # (test code = Eosinophils 0.1 <=0.5 #) [place] 092331-04-30 08:33:00 Test Item Value Reference Range Interpretation Comments Basophils # (test code = Basophils #) 0.1 <=0.2 [place] 313751-04-30 03:52:00 Test Item Value Reference Range Interpretation Comments Coronavirus (COVID-19) Not Detected (07/01/20 BHARATH (test code = 10:52 PM) Coronavirus (COVID-19) BHARATH) [place] 313751-04-30 03:52:00 Test Item Value Reference Range Interpretation Comments Coronavirus (COVID-19) Not Detected (07/01/20 BHARATH (test code = 10:52 PM) Coronavirus (COVID-19) BHARATH) [place] [address]-04-30 03:52:00 Test Item Value Reference Range Interpretation Comments Coronavirus (COVID-19) Not Detected (07/01/20 BHARATH (test code = 10:52 PM) Coronavirus (COVID-19) BHARATH) [place] 092331-04-29 19:33:00 Test Item Value Reference Range Interpretation Comments Hct (test code = Hct) 37.5 36.0-48.0 [facility]qhltnfPBQPYGQUCH8657[facility] 19:33:00 Test Item Value Reference Range Interpretation Comments MCV (test code = MCV) 85.6 80.0-98.0 [place] 092331-04-29 19:33:00 Test Item Value Reference Range Interpretation Comments MCH (test code = MCH) 29.4 pg 27.0-31.0 [place] 092331-04-29 19:33:00 Test Item Value Reference Range Interpretation Comments MCHC (test code = MCHC) 34.4 32.0-36.0 [place] 092331-04-29 19:33:00 Test Item Value Reference Range Interpretation Comments RDW (test code = RDW) 13.1 11.5-14.5 [place] 092331-04-29 19:33:00 Test Item Value Reference Range Interpretation Comments Platelet (test code = Platelet) 470 133-450 [facility] HospitalYxvozhbVPCFZFRBXN2761-33-54 19:33:00 Test Item Value Reference Range Interpretation Comments MPV (test code = MPV) 6.7 7.4-10.4 [place] 092331-04-29 19:33:00 Test Item Value Reference Range Interpretation Comments Segs (test code = Segs) 69.6 45.0-75.0 [facility] HospitalAjivjejUFTUKPFEYZ5650-35-64 19:33:00 Test Item Value Reference Range Interpretation Comments Lymphocytes (test code = Lymphocytes) 22.2 20.0-40.0 [place] 092331-04-29 19:33:00 Test Item Value Reference Range Interpretation Comments Monocytes (test code = Monocytes) 7.0 2.0-12.0 [place] [address]-04-29 19:33:00 Test Item Value Reference Range Interpretation Comments Eosinophils (test code = 0.6 See_Comment [A utomated message] The Eosinophils) system which ge nerated this result tra nsmitted reference range : <=4.0. The reference r gilda was not used to int erpret this result as normal/abnormal . [facility] HospitalMchvbrbNVTRXSZHAG6215-06-24 19:33:00 Test Item Value Reference Range Interpretation Comments Basophils (test code = 0.6 See_Comment [Aut omated message] The Basophils) system which ge nerated this result tra nsmitted reference range : <=1.0. The reference r gilda was not used to int erpret this result as normal/abnormal . [facility] HospitalDizzplzZTXEBSSABZ6198-47-01 19:33:00 Test Item Value Reference Range Interpretation Comments Neutrophils # (test code = Neutrophils 7.7 1.5-8.1 #) [facility] HospitalAxgxnbgYWGDCADEIL0842-32-20 19:33:00 Test Item Value Reference Range Interpretation Comments Lymphocytes # (test code = Lymphocytes 2.4 1.0-5.5 #) [facility] HospitalXqgvwydYISAZKKTSB5590-15-99 19:33:00 Test Item Value Reference Range Interpretation Comments Monocytes # (test code 0.8 See_Comment [Aut omated message] The = Monocytes #) system which generated this result tra nsmitted reference range : <=0.8. The reference r gilda was not used to int erpret this result as normal/abnormal . [facility] HospitalBopqifaQGOCRUGCNY8527-00-98 19:33:00 Test Item Value Reference Range Interpretation Comments Eosinophils # (test code 0.1 See_Comment [A utomated message] The = Eosinophils #) system whic h generated this result tra nsmitted reference range : <=0.5. The reference r gilda was not used to int erpret this result as normal/abnormal . [facility] HospitalRqonsmfCVFPELMVIR5914-13-63 19:33:00 Test Item Value Reference Range Interpretation Comments Basophils # (test code 0.1 See_Comment [Aut omated message] The = Basophils #) system which generated this result tra nsmitted reference range : <=0.2. The reference r gilda was not used to int erpret this result as normal/abnormal . [facility]CARD[facility]AC [id number] 19:33:00 Test Item Value Reference Range Interpretation Comments BNP (test code = BNP) 5 [facility] CenterCARFisionAC [id number] 19:33:00 Test Item Value Reference Range Interpretation Comments Troponin-I (test code no gt See_Comment [Auto mated message] The = Troponin-I) system which g enerated this result transmit joseluis reference range : <=0.40. The reference r gilda was not used to interpr et this result as fabricio l/abnormal. [facility]CHEM [id number] 19:33:00 Test Item Value Reference Range Interpretation Comments Glucose Lvl (test code = Glucose Lvl) 101 70-99 [place] 331651-04-29 19:33:00 Test Item Value Reference Range Interpretation Comments BUN (test code = BUN) 8 7-22 [place] 331651-04-29 19:33:00 Test Item Value Reference Range Interpretation Comments Creatinine Lvl (test code = Creatinine 0.80 0.50-1.40 Lvl) [place] 331651-04-29 19:33:00 Test Item Value Reference Range Interpretation Comments Sodium Lvl (test code = Sodium Lvl) 136 135-145 [place] 331651-04-29 19:33:00 Test Item Value Reference Range Interpretation Comments Potassium Lvl (test code = Potassium 3.9 3.5-5.1 Lvl) [place] 331651-04-29 19:33:00 Test Item Value Reference Range Interpretation Comments Chloride Lvl (test code = Chloride Lvl) 102 95-109 [place] 331651-04-29 19:33:00 Test Item Value Reference Range Interpretation Comments CO2 (test code = CO2) 30 24-32 [place] 331651-04-29 19:33:00 Test Item Value Reference Range Interpretation Comments Calcium Lvl (test code = Calcium Lvl) 9.2 8.5-10.5 [place] 331651-04-29 19:33:00 Test Item Value Reference Range Interpretation Comments Total Protein (test code = Total 8.7 6.4-8.4 Protein) [place] 331651-04-29 19:33:00 Test Item Value Reference Range Interpretation Comments Albumin Lvl (test code = Albumin Lvl) 3.4 3.5-5.0 [place] 331651-04-29 19:33:00 Test Item Value Reference Range Interpretation Comments ALT (test code = ALT) 15 See_Comment [Auto mated message] The system which ge nerated this result transmit joseluis reference range : <=65. The reference range was not used to interpr et this result as fabricio l/abnormal. [place] 331651-04-29 19:33:00 Test Item Value Reference Range Interpretation Comments AST (test code = AST) 16 See_Comment [Auto mated message] The system which ge nerated this result transmit joseluis reference range : <=37. The reference range was not used to interpr et this result as fabricio l/abnormal. [facility] [id number] 19:33:00 Test Item Value Reference Range Interpretation Comments Alk Phos (test code = Alk Phos) 148 39-136 [facility]2021-04-29 19:33:00 Test Item Value Reference Range Interpretation Comments Bili Total (test code = Bili Total) 0.6 0.2-1.3 [facility]2021-04-29 19:33:00 Test Item Value Reference Range Interpretation Comments AGAP (test code = AGAP) 7.9 10.0-20.0 [facility]2021-04-29 19:33:00 Test Item Value Reference Range Interpretation Comments B/C Ratio (test code = B/C Ratio) 10 1 6-25 [facility]2021-04-29 19:33:00 Test Item Value Reference Range Interpretation Comments Globulin (test code = Globulin) 5.3 2.7-4.2 [facility] [id number] 19:33:00 Test Item Value Reference Range Interpretation Comments A/G Ratio (test code = A/G Ratio) 0.6 1 0.7-1.6 [facility]2021-04-29 19:33:00 Test Item Value Reference Range Interpretation Comments eGFR (test code = eGFR) 90 [facility]AgzrmhsCKIEVLOKNWBPG1326-45-32 19:33:00 Test Item Value Reference Range Interpretation Comments S Preg (test code = S Negative *NA*(07/01/20 Preg) 2:33 PM) [facility] CenterJecjovaKHBOUKTDVX2022-39-51 19:33:00 Test Item Value Reference Range Interpretation Comments WBC (test code = WBC) 11.0 3.7-10.4 [facility] HospitalHjeuyesAXRBQBAQRF4997-26-94 19:33:00 Test Item Value Reference Range Interpretation Comments RBC (test code = RBC) 4.38 4.20-5.40 [facility] HospitalHpuzosnVPMJRNAQAT3693-00-28 19:33:00 Test Item Value Reference Range Interpretation Comments Hgb (test code = Hgb) 12.9 12.0-16.0 [place] [address]-04-29 19:33:00 Test Item Value Reference Range Interpretation Comments Hct (test code = Hct) 37.5 36.0-48.0 [facility] HospitalJxorsywUWYRXLXHFH5878-63-84 19:33:00 Test Item Value Reference Range Interpretation Comments MCV (test code = MCV) 85.6 80.0-98.0 [place] 092331-04-29 19:33:00 Test Item Value Reference Range Interpretation Comments MCH (test code = MCH) 29.4 pg 27.0-31.0 [facility] HospitalYiuwwseYHYJTHBLWZ4072-23-98 19:33:00 Test Item Value Reference Range Interpretation Comments MCHC (test code = MCHC) 34.4 32.0-36.0 [facility] HospitalGoakbddTYYGTPHXBV8560-18-89 19:33:00 Test Item Value Reference Range Interpretation Comments RDW (test code = RDW) 13.1 11.5-14.5 [place] 092331-04-29 19:33:00 Test Item Value Reference Range Interpretation Comments Platelet (test code = Platelet) 470 133-450 [facility] HospitalZphubemAIDCMAMOPA7750-18-26 19:33:00 Test Item Value Reference Range Interpretation Comments MPV (test code = MPV) 6.7 7.4-10.4 [facility] HospitalNdhuiewXIKNGOGTJD0283-96-47 19:33:00 Test Item Value Reference Range Interpretation Comments Segs (test code = Segs) 69.6 45.0-75.0 [facility] HospitalNpfnmabHOKUWJFZCY2074-86-86 19:33:00 Test Item Value Reference Range Interpretation Comments Lymphocytes (test code = Lymphocytes) 22.2 20.0-40.0 [facility] HospitalQtjxeqyWOKVATSTFR5396-20-53 19:33:00 Test Item Value Reference Range Interpretation Comments Monocytes (test code = Monocytes) 7.0 2.0-12.0 [place] 092331-04-29 19:33:00 Test Item Value Reference Range Interpretation Comments Eosinophils (test code = 0.6 See_Comment [A utomated message] The Eosinophils) system which ge nerated this result tra nsmitted reference range : <=4.0. The reference r gilda was not used to int erpret this result as normal/abnormal . [facility] HospitalAokxgcsZXEQDCVLRG4489-36-70 19:33:00 Test Item Value Reference Range Interpretation Comments Basophils (test code = 0.6 See_Comment [Aut omated message] The Basophils) system which ge nerated this result tra nsmitted reference range : <=1.0. The reference r gilda was not used to int erpret this result as normal/abnormal . [facility] HospitalBpztcxvOXSDIMCWGX0227-79-54 19:33:00 Test Item Value Reference Range Interpretation Comments Neutrophils # (test code = Neutrophils 7.7 1.5-8.1 #) [facility] HospitalEwezobmBKZVLSVSGJ3332-47-00 19:33:00 Test Item Value Reference Range Interpretation Comments Lymphocytes # (test code = Lymphocytes 2.4 1.0-5.5 #) [facility] HospitalStlzqppMIMGVVWBUU0630-80-20 19:33:00 Test Item Value Reference Range Interpretation Comments Monocytes # (test code 0.8 See_Comment [Aut omated message] The = Monocytes #) system which generated this result tra nsmitted reference range : <=0.8. The reference r gilda was not used to int erpret this result as normal/abnormal . [facility] HospitalVhpdexvHTMXZGDVZI5448-67-61 19:33:00 Test Item Value Reference Range Interpretation Comments Eosinophils # (test code 0.1 See_Comment [A utomated message] The = Eosinophils #) system whic h generated this result tra nsmitted reference range : <=0.5. The reference r gilda was not used to int erpret this result as normal/abnormal . [facility] HospitalTklraaaUTDKDGGPCN8638-12-29 19:33:00 Test Item Value Reference Range Interpretation Comments Basophils # (test code 0.1 See_Comment [Aut omated message] The = Basophils #) system which generated this result tra nsmitted reference range : <=0.2. The reference r gilda was not used to int erpret this result as normal/abnormal . [facility] CenterCARDIAC [id number] 19:33:00 Test Item Value Reference Range Interpretation Comments BNP (test code = BNP) 5 [facility] CenterCARRadish Systems JUZMRKB8677-19-28 19:33:00 Test Item Value Reference Range Interpretation Comments Troponin-I (test code no gt See_Comment [Auto mated message] The = Troponin-I) system which g enerated this result transmit joseluis reference range : <=0.40. The reference r gilda was not used to interpr et this result as fabricio l/abnormal. [place] 331651-04-29 19:33:00 Test Item Value Reference Range Interpretation Comments Glucose Lvl (test code = Glucose Lvl) 101 70-99 [place] 331651-04-29 19:33:00 Test Item Value Reference Range Interpretation Comments BUN (test code = BUN) 8 7-22 [place] 331651-04-29 19:33:00 Test Item Value Reference Range Interpretation Comments Creatinine Lvl (test code = Creatinine 0.80 0.50-1.40 Lvl) [place] 331651-04-29 19:33:00 Test Item Value Reference Range Interpretation Comments Sodium Lvl (test code = Sodium Lvl) 136 135-145 [place] 331651-04-29 19:33:00 Test Item Value Reference Range Interpretation Comments Potassium Lvl (test code = Potassium 3.9 3.5-5.1 Lvl) [place] 331651-04-29 19:33:00 Test Item Value Reference Range Interpretation Comments Chloride Lvl (test code = Chloride Lvl) 102 95-109 [place] 331651-04-29 19:33:00 Test Item Value Reference Range Interpretation Comments CO2 (test code = CO2) 30 24-32 [place] 331651-04-29 19:33:00 Test Item Value Reference Range Interpretation Comments Calcium Lvl (test code = Calcium Lvl) 9.2 8.5-10.5 [place] 331651-04-29 19:33:00 Test Item Value Reference Range Interpretation Comments Total Protein (test code = Total 8.7 6.4-8.4 Protein) [place] 331651-04-29 19:33:00 Test Item Value Reference Range Interpretation Comments Albumin Lvl (test code = Albumin Lvl) 3.4 3.5-5.0 [place] 331651-04-29 19:33:00 Test Item Value Reference Range Interpretation Comments ALT (test code = ALT) 15 See_Comment [Auto mated message] The system which ge nerated this result transmit joseluis reference range : <=65. The reference range was not used to interpr et this result as fabricio l/abnormal. [place] 331651-04-29 19:33:00 Test Item Value Reference Range Interpretation Comments AST (test code = AST) 16 See_Comment [Auto mated message] The system which ge nerated this result transmit joseluis reference range : <=37. The reference range was not used to interpr et this result as fabricio l/abnormal. [facility] [id number] 19:33:00 Test Item Value Reference Range Interpretation Comments Alk Phos (test code = Alk Phos) 148 39-136 [facility]2021-04-29 19:33:00 Test Item Value Reference Range Interpretation Comments Bili Total (test code = Bili Total) 0.6 0.2-1.3 [place] 331651-04-29 19:33:00 Test Item Value Reference Range Interpretation Comments AGAP (test code = AGAP) 7.9 10.0-20.0 [place] 331651-04-29 19:33:00 Test Item Value Reference Range Interpretation Comments B/C Ratio (test code = B/C Ratio) 10 1 6-25 [place] 331651-04-29 19:33:00 Test Item Value Reference Range Interpretation Comments Globulin (test code = Globulin) 5.3 2.7-4.2 [place] 331651-04-29 19:33:00 Test Item Value Reference Range Interpretation Comments A/G Ratio (test code = A/G Ratio) 0.6 1 0.7-1.6 [facility]2021-04-29 19:33:00 Test Item Value Reference Range Interpretation Comments eGFR (test code = eGFR) 90 [facility] HospitalBvdzfmaNCCXALQDNWWWW3587-32-98 19:33:00 Test Item Value Reference Range Interpretation Comments S Preg (test code = S Negative *NA*(07/01/20 Preg) 2:33 PM) [facility] HospitalNzxekzlWMDTBJGMAE7598-59-46 19:33:00 Test Item Value Reference Range Interpretation Comments WBC (test code = WBC) 11.0 3.7-10.4 [place] 092331-04-29 19:33:00 Test Item Value Reference Range Interpretation Comments RBC (test code = RBC) 4.38 4.20-5.40 [place] 092331-04-29 19:33:00 Test Item Value Reference Range Interpretation Comments Hgb (test code = Hgb) 12.9 12.0-16.0 [facility] HospitalUrjbmtmRFOXJKIVZD7089-84-19 19:33:00 Test Item Value Reference Range Interpretation Comments RBC (test code = RBC) 4.38 4.20-5.40 [facility] HospitalGnspqylKOEBEYHEDY2618-82-38 19:33:00 Test Item Value Reference Range Interpretation Comments Hgb (test code = Hgb) 12.9 12.0-16.0 [facility] HospitalRbpqrmdLQZZQSZYIZ7151-64-71 19:33:00 Test Item Value Reference Range Interpretation Comments Hct (test code = Hct) 37.5 36.0-48.0 [facility] HospitalNwvcugxONNDLYJUCB2286-19-23 19:33:00 Test Item Value Reference Range Interpretation Comments MCV (test code = MCV) 85.6 80.0-98.0 [facility] HospitalUrztqthOPBBAQBULU2779-95-47 19:33:00 Test Item Value Reference Range Interpretation Comments MCH (test code = MCH) 29.4 pg 27.0-31.0 [facility] HospitalWsopktyOHGKTWPFUB3747-30-18 19:33:00 Test Item Value Reference Range Interpretation Comments MCHC (test code = MCHC) 34.4 32.0-36.0 [facility] HospitalSilbaguSFPZURONJY3197-61-30 19:33:00 Test Item Value Reference Range Interpretation Comments RDW (test code = RDW) 13.1 11.5-14.5 [facility] HospitalJbqkvvaOESTVIREME5974-06-60 19:33:00 Test Item Value Reference Range Interpretation Comments Platelet (test code = Platelet) 470 133-450 [facility] HospitalGzeupyxWEGUFOOFMM9015-03-83 19:33:00 Test Item Value Reference Range Interpretation Comments MPV (test code = MPV) 6.7 7.4-10.4 [facility] HospitalHuoxbakTDBXSXVHRY8875-20-79 19:33:00 Test Item Value Reference Range Interpretation Comments Segs (test code = Segs) 69.6 45.0-75.0 [facility] HospitalUadiypiFDBUOOTDEP3112-92-55 19:33:00 Test Item Value Reference Range Interpretation Comments Lymphocytes (test code = Lymphocytes) 22.2 20.0-40.0 [facility] HospitalDbgschbELXQENMBHF9967-18-32 19:33:00 Test Item Value Reference Range Interpretation Comments Monocytes (test code = Monocytes) 7.0 2.0-12.0 [facility]FczoeinIZECRDKYDH4097-94-17 19:33:00 Test Item Value Reference Range Interpretation Comments Eosinophils (test code = Eosinophils) 0.6 <=4.0 [facility] HospitalEhztcmxAZLWJYHDMA9948-27-99 19:33:00 Test Item Value Reference Range Interpretation Comments Basophils (test code = Basophils) 0.6 <=1.0 [facility] HospitalPwkkzqqZITZEBBIZG0936-67-38 19:33:00 Test Item Value Reference Range Interpretation Comments Neutrophils # (test code = Neutrophils 7.7 1.5-8.1 #) [facility] HospitalBeucvudJSEIDNEZJY2669-11-54 19:33:00 Test Item Value Reference Range Interpretation Comments Lymphocytes # (test code = Lymphocytes 2.4 1.0-5.5 #) [facility] HospitalBdotslzTOLVLCZJSR8765-29-05 19:33:00 Test Item Value Reference Range Interpretation Comments Monocytes # (test code = Monocytes #) 0.8 <=0.8 [facility] HospitalXclqexeABBMMEFJCH3043-69-98 19:33:00 Test Item Value Reference Range Interpretation Comments Eosinophils # (test code = Eosinophils 0.1 <=0.5 #) [facility] HospitalUadsoomYYOOMSRAZT1450-55-40 19:33:00 Test Item Value Reference Range Interpretation Comments Basophils # (test code = Basophils #) 0.1 <=0.2 [facility]CARFisionAC WQWYBVW9395-65-74 19:33:00 Test Item Value Reference Range Interpretation Comments BNP (test code = BNP) 5 [facility] XAROIWQ4754-02-10 19:33:00 Test Item Value Reference Range Interpretation Comments Troponin-I (test code = Troponin-I) no gt <=0.40 [facility] [id number] 19:33:00 Test Item Value Reference Range Interpretation Comments Glucose Lvl (test code = Glucose Lvl) 101 70-99 [facility] [id number] 19:33:00 Test Item Value Reference Range Interpretation Comments BUN (test code = BUN) 8 7-22 [facility] [id number] 19:33:00 Test Item Value Reference Range Interpretation Comments Creatinine Lvl (test code = Creatinine 0.80 0.50-1.40 Lvl) [facility] [id number] 19:33:00 Test Item Value Reference Range Interpretation Comments Sodium Lvl (test code = Sodium Lvl) 136 135-145 [facility]2021-04-29 19:33:00 Test Item Value Reference Range Interpretation Comments Potassium Lvl (test code = Potassium 3.9 3.5-5.1 Lvl) [facility]2021-04-29 19:33:00 Test Item Value Reference Range Interpretation Comments Chloride Lvl (test code = Chloride Lvl) 102 95-109 [facility]2021-04-29 19:33:00 Test Item Value Reference Range Interpretation Comments CO2 (test code = CO2) 30 24-32 [place] [id number] 19:33:00 Test Item Value Reference Range Interpretation Comments Calcium Lvl (test code = Calcium Lvl) 9.2 8.5-10.5 [facility]2021-04-29 19:33:00 Test Item Value Reference Range Interpretation Comments Total Protein (test code = Total 8.7 6.4-8.4 Protein) [facility]2021-04-29 19:33:00 Test Item Value Reference Range Interpretation Comments Albumin Lvl (test code = Albumin Lvl) 3.4 3.5-5.0 [facility]2021-04-29 19:33:00 Test Item Value Reference Range Interpretation Comments ALT (test code = ALT) 15 <=65 [place] [id number] 19:33:00 Test Item Value Reference Range Interpretation Comments AST (test code = AST) 16 <=37 [place] [id number] 19:33:00 Test Item Value Reference Range Interpretation Comments Alk Phos (test code = Alk Phos) 148 39-136 [facility]2021-04-29 19:33:00 Test Item Value Reference Range Interpretation Comments Bili Total (test code = Bili Total) 0.6 0.2-1.3 [place] [id number] 19:33:00 Test Item Value Reference Range Interpretation Comments AGAP (test code = AGAP) 7.9 10.0-20.0 [place] [id number] 19:33:00 Test Item Value Reference Range Interpretation Comments B/C Ratio (test code = B/C Ratio) 10 1 6-25 [place] [id number] 19:33:00 Test Item Value Reference Range Interpretation Comments Globulin (test code = Globulin) 5.3 2.7-4.2 [facility]2021-04-29 19:33:00 Test Item Value Reference Range Interpretation Comments A/G Ratio (test code = A/G Ratio) 0.6 1 0.7-1.6 [facility]2021-04-29 19:33:00 Test Item Value Reference Range Interpretation Comments eGFR (test code = eGFR) 90 [id number] 19:33:00 Test Item Value Reference Range Interpretation Comments S Preg (test code = S Negative *NA*(07/01/20 Preg) 2:33 PM) [id number] 19:33:00 Test Item Value Reference Range Interpretation Comments WBC (test code = WBC) 11.0 3.7-10.4 [facility]"
[2022-11-25] MEDS ORDERED: FAMOTIDINE 20 MG/2 ML VIAL IV ONE (12:25)
[2022-11-25] MEDS ORDERED: NA CHLORIDE 0.9% 1,000 ML ONE ×2 (12:25→15:35)
[2022-11-25 12:29] LABS: Hematocrit 39.3 % (36.0-45.0); Lymphocytes % 13.6 % (15.3-44.8); MCV 85.2 fL (80-100); MPV 7.1 fL (7.6-11.3); Platelets 404 thou/uL (152-406); RBC Red Blood Cell Count 4.61 M/uL (3.86-4.86)
[2022-11-25 12:31] LABS: Specific Gravity 1.012 (1.005-1.030); Urine Bacteria <20 /HPF (<20); Urine Bilirubin NEGATIVE (Negative); Urine Blood Negative (Negative); Urine Clarity Clear (Clear); Urine Color Light-Yellow (Yellow); Urine Glucose NEGATIVE (Negative); Urine Mucus Slight /HPF (None Seen); Urine Protein NEGATIVE (Negative); Urine RBC None Seen /HPF (None Seen); Urine Urobilinogen Normal (Normal); Urine pH 6.5 (5.0-7.0)
[2022-11-25] MEDS ORDERED: FENTANYL CITR 100 MCG/2 ML ONE (12:42)
[2022-11-25 12:45] LABS: Albumin 3.8 g/dL (3.4-5.0); Potassium 3.5 mEq/L (3.5-5.1); Protein, Total 7.6 g/dL (6.4-8.2)
--- NOTE | 2022-11-25 13:40 | RAD REPORT ---
EXAM DESCRIPTION: CTAbdomen Pelvis W Contrast - 11/25/2022 1:01 pm CLINICAL HISTORY: Abdominal pain. bright red blood;Abd pain COMPARISON: <Comparisons> TECHNIQUE: Biphasic CT imaging of the abdomen and pelvis was performed with 100 ml non-ionic IV cont rast. All CT scans are performed using dose optimization technique as appropriate and may include automated exposure control or mA/KV adjustment according to patient size. FINDINGS: The lung bases are clear. The liver, spleen, pancreas, adrenal glands and kidneys are within normal limits. No bowel obstruction, free air, free fluid or abscess. The appendix is normal. No evidence of signi ficant lymphadenopathy. No suspicious bony findings. IMPRESSION: No acute intra-abdominal or pelvic finding.
[2022-11-25] MEDS ORDERED: CIPROFLOXACIN 400mg IV 400 MG/200 ML BAG IV ONE (14:27)
[2022-11-25] MEDS ORDERED: DICYCLOMINE HCL 10 MG CAP ONE (14:27)
--- NOTE | 2022-11-25 15:08 | ER ---
Nurse's Notes [facility] Name: Esperanza Resendiz Age: 47 yrs Sex: Female : 1975 Arrival Date: 11/25/2022 Time: 11:52 Bed 2 Private MD: Diagnosis: Left sided colitis with rectal bleeding Presentation: 11/25 12:07 Chief complaint: N/D and abdominal cramping since last night. Bright red blood in stool hb today. Coronavirus screen: At this time, the client does not indicate any symptoms associated with coronavirus-19. Ebola Screen: No symptoms or risks identified at this time. Initial Sepsis Screen: Does the patient meet any 2 criteria? No. Patient's initial sepsis screen is negative. Does the patient have a suspected source of infection? No. Patient's initial sepsis screen is negative. Risk Assessment: Do you want to hurt yourself or someone else? Patient reports no desire to harm self or others. Onset of symptoms was November 24, 2022. 12:07 Method Of Arrival: Ambulatory hb 12:07 Acuity: TERRI 3 hb Historical: - Allergies: 12:08 unknown pain med; hb - Home Meds: 12:08 aspirin 81 mg Oral capsule daily [Active]; Xyzal 5 mg oral tablet daily [Active]; hb tizanidine oral once daily at bedtime [Active]; Omeprazole Oral daily [Active]; Ozempic subcutaneous every week [Active]; - PMHx: 12:08 GERD; hb - PSHx: 12:08 Hysterectomy; Breast Augmentation; Thyroid - Cyst Removal; hb - Immunization history:: Adult Immunizations up to date. - Social history:: Smoking status: Patient denies any tobacco usage or history of. Screenin:09 [facility] ED Fall Risk Assessment (Adult) History of falling in the last 3 months, ph including since admission No falls in past 3 months (0 pts) Confusion or Disorientation No (0 pts) Intoxicated or Sedated No (0 pts) Impaired Gait No (0 pts) Mobility Assist Device Used No (0 pt) Altered Elimination No (0 pt) Score/Fall Risk Level 0 - 2 = Low Risk Oriented to surroundings, Maintained a safe environment, Provided non-skid footwear, Hourly rounding (assess needs \T\ fall precautionary measures) done. Abuse screen: Denies threats or abuse. Denies injuries from another. Nutritional screening: No deficits noted. Tuberculosis screening: No symptoms or risk factors identified. Assessment: 12:33 General: Appears in no apparent distress. comfortable, Behavior is calm, cooperative, ld1 appropriate for age. Pain: Complains of pain in abdomen Pain does not radiate. Pain currently is 8 out of 10 on a pain scale. Quality of pain is described as sharp, shooting, Pain began 4 hours ago. Is continuous. Neuro: Level of Consciousness is awake, alert, obeys commands, Oriented to person, place, time, situation. Cardiovascular: Capillary refill < 3 seconds Patient's skin is warm and dry. Rhythm is sinus rhythm. Respiratory: Airway is patent Respiratory effort is even, unlabored. GI: Abdomen is round non-distended, Bowel sounds present X 4 quads. Abd is soft Abdomen is tender to palpation Reports bloody stool. : No signs and/or symptoms were reported regarding the genitourinary system. EENT: No signs and/or symptoms were reported regarding the EENT system. Derm: No signs and/or symptoms reported regarding the dermatologic system. Musculoskeletal: No signs and/or symptoms reported regarding the musculoskeletal system. 14:32 Reassessment: Patient appears in no apparent distress at this time. Patient and/or ph family updated on plan of care and expected duration. Pain level reassessed. Patient is alert, oriented x 3, equal unlabored respirations, skin warm/dry/pink. Vital Signs: 12:07 BP 140 / 91; Pulse 86; Resp 16; Temp 98.5(O); Pulse Ox 100% on R/A; Weight 79.38 kg; hb Height 5 ft. 4 in. ; Pain 10/10; 12:33 BP 128 / 77; Pulse 92; Resp 18; Pulse Ox 99% on R/A; Pain 8/10; ld1 13:30 BP 125 / 78; Pulse 82; Resp 16; Pulse Ox 100% on R/A; ph 14:33 BP 127 / 80; Pulse 77; Resp 18; Pulse Ox 100% on R/A; ph 16:23 BP 134 / 79; Pulse 71; Resp 18; Pulse Ox 100% on R/A; ld1 12:07 Body Mass Index 30.04 (79.38 kg, 162.56 cm) hb 12:07 Pain Scale: Adult hb 12:33 Pain Scale: Adult ld1 ED Course: 11:55 Patient arrived in ED. mr 12:01 Cely Delaney, [facility] snw 12:01 Chaparro Painter MD is Attending Physician. snw 12:03 Esperanza Tamayo, ZHANG is Primary Nurse. ph 12:08 Triage completed. hb 12:09 Arm band placed on Patient placed in an exam room, on a stretcher. ph 12:10 Patient has correct armband on for positive identification. Bed in low position. Call ph light in reach. Side rails up X2. Pulse ox on. NIBP on. 12:22 Urine W/Microscopic (UAM) Sent. ld1 12:22 CBC with Diff Sent. ld1 12:22 CMP Sent. ld1 12:22 Lipase Sent. ld1 12:33 Door closed. Noise minimized. Warm blanket given. ld1 12:33 Inserted saline lock: 22 gauge in right upper arm, using aseptic technique. Blood ld1 collected. 12:33 No provider procedures requiring assistance completed. ld1 13:02 CT Abd/Pelvis - IV Contrast Only In Process Unspecified. EDMS 16:23 IV discontinued, intact, bleeding controlled, No redness/swelling at site. ld1 Administered Medications: 12:22 Drug: NS 0.9% IV 1000 ml IV at 1 bolus Per protocol; 1000 mL bolus Route: IV; Rate: 1 ld1 bolus; Site: right antecubital; 12:22 Drug: Famotidine IVP 20 mg IVP once; dilute with 10 mL 0.9% NaCl; give over 2 minutes ld1 Route: IVP; Site: right antecubital; 12:32 Drug: fentaNYL (PF) IVP 25 mcg IVP once Route: IVP; Site: right upper arm; ld1 14:32 Drug: Ciprofloxacin IVPB 400 mg 200 ml IVPB once over 60 mins Volume: 200 ml; Route: ph IVPB; Infused Over: 60 mins; Site: right upper arm; 14:32 Drug: Dicyclomine PO 20 mg PO once Route: PO; ph 15:27 Drug: NS 0.9% IV 1000 ml IV at 1 bolus Per protocol; 1000 mL bolus Route: IV; Rate: 1 kd3 bolus; Site: right upper arm; 15:28 Drug: Sucralfate PO 1 grams PO once; make a slurry please Route: PO; kd3 15:28 Drug: Promethazine PO 25 mg PO once Route: PO; kd3 15:28 Drug: Promethazine IVP 25 mg IVP once Route: IVP; Site: right upper arm; kd3 15:28 Drug: NS 0.9% IV 250 ml IV at bolus once Route: IV; Rate: bolus; Site: right upper arm; kd3 Medication: 12:10 VIS not applicable for this client. ph Outcome: 15:07 Discharge ordered by . harriett 16:22 Discharged to home ambulatory, ld1 16:22 Condition: stable 16:22 Discharge instructions given to patient, Instructed on discharge instructions, follow up and referral plans. medication usage, Demonstrated understanding of instructions, follow-up care, wound care, Prescriptions given X 4, 16:23 Patient left the ED. ld1 Signatures: Dispatcher [employer] EDMS Cely Delaney, HOSPITALITY SERVICES MANAGER-C HOSPITALITY SERVICES MANAGER-Csnw Andree Shaffer, Reg Reg mr Esperanza Tamayo, RN Emili Davis ph, ZHANG HOLCOMB Yamila Marie RN RN ld1 Princess Moreland RN RN kd3
--- NOTE | 2022-11-25 15:08 | EDPHYS ---
Physician Documentation [facility] Name: Esperanza Resendiz Age: 47 yrs Sex: Female : 1975 Arrival Date: 11/25/2022 Time: 11:52 Bed 2 Private MD: ED Physician Chaparro Painter HPI: 11/25 13:35 This 47 yrs old Female presents to ER via Ambulatory with complaints of Abdominal Pain. snw 13:35 The patient presents with abdominal pain in the lower abdomen. Onset: The snw symptoms/episode began/occurred cramping a little over the week but this am starting at 0600 with significant cramping and bright red blood per rectum . The symptoms do not radiate. Associated signs and symptoms: none. The symptoms are described as crampy. Severity of pain: At its worst the pain was moderate. The patient has not experienced similar symptoms in the past. recently started Ozempic. Historical: - Allergies: 12:08 unknown pain med; hb - Home Meds: 12:08 aspirin 81 mg Oral capsule daily [Active]; Xyzal 5 mg oral tablet daily [Active]; hb tizanidine oral once daily at bedtime [Active]; Omeprazole Oral daily [Active]; Ozempic subcutaneous every week [Active]; - PMHx: 12:08 GERD; hb - PSHx: 12:08 Hysterectomy; Breast Augmentation; Thyroid - Cyst Removal; hb - Immunization history:: Adult Immunizations up to date. - Social history:: Smoking status: Patient denies any tobacco usage or history of. ROS: 13:35 Constitutional: Negative for fever, chills, and weight loss, Eyes: Negative for injury, snw pain, redness, and discharge, ENT: Negative for injury, pain, and discharge, Neck: Negative for injury, pain, and swelling, Cardiovascular: Negative for chest pain, palpitations, and edema, Respiratory: Negative for shortness of breath, cough, wheezing, and pleuritic chest pain, Back: Negative for injury and pain, : Negative for injury, bleeding, discharge, and swelling, MS/Extremity: Negative for injury and deformity, Skin: Negative for injury, rash, and discoloration, Neuro: Negative for headache, weakness, numbness, tingling, and seizure, Psych: Negative for depression, anxiety, suicide ideation, homicidal ideation, and hallucinations, 13:35 Abdomen/GI: Positive for abdominal pain, rectal bleeding, of the suprapubic area, right lower quadrant and left lower quadrant, Exam: 13:34 Constitutional: This is a well developed, well nourished patient who is awake, alert, snw and in no acute distress. Head/Face: Normocephalic, atraumatic. Eyes: Pupils equal round and reactive to light, extra-ocular motions intact. Lids and lashes normal. Conjunctiva and sclera are non-icteric and not injected. Cornea within normal limits. Periorbital areas with no swelling, redness, or edema. ENT: Nares patent. No nasal discharge, no septal abnormalities noted. Tympanic membranes are normal and external auditory canals are clear. Oropharynx with no redness, swelling, or masses, exudates, or evidence of obstruction, uvula midline. Mucous membranes moist. Neck: Trachea midline, no thyromegaly or masses palpated, and no cervical lymphadenopathy. Supple, full range of motion without nuchal rigidity, or vertebral point tenderness. No Meningismus. Chest/axilla: Normal chest wall appearance and motion. Nontender with no deformity. No lesions are appreciated. Cardiovascular: Regular rate and rhythm with a normal S1 and S2. No gallops, murmurs, or rubs. Normal PMI, no JVD. No pulse deficits. Respiratory: Lungs have equal breath sounds bilaterally, clear to auscultation and percussion. No rales, rhonchi or wheezes noted. No increased work of breathing, no retractions or nasal flaring. 13:34 Back: No spinal tenderness. No costovertebral tenderness. Full range of motion. Skin: Warm, dry with normal turgor. Normal color with no rashes, no lesions, and no evidence of cellulitis. MS/ Extremity: Pulses equal, no cyanosis. Neurovascular intact. Full, normal range of motion. Neuro: Awake and alert, GCS 15, oriented to person, place, time, and situation. Cranial nerves II-XII grossly intact. Motor strength 5/5 in all extremities. Sensory grossly intact. Cerebellar exam normal. Normal gait. Psych: Awake, alert, with orientation to person, place and time. Behavior, mood, and affect are within normal limits. 13:34 Abdomen/GI: Inspection: abdomen appears normal, Bowel sounds: hyperactive, Palpation: soft, in the right upper quadrant and left upper quadrant, mild abdominal tenderness, in the suprapubic area, right lower quadrant and left lower quadrant, Vital Signs: 12:07 BP 140 / 91; Pulse 86; Resp 16; Temp 98.5(O); Pulse Ox 100% on R/A; Weight 79.38 kg; hb Height 5 ft. 4 in. ; Pain 10/10; 12:33 BP 128 / 77; Pulse 92; Resp 18; Pulse Ox 99% on R/A; Pain 8/10; ld1 13:30 BP 125 / 78; Pulse 82; Resp 16; Pulse Ox 100% on R/A; ph 14:33 BP 127 / 80; Pulse 77; Resp 18; Pulse Ox 100% on R/A; ph 16:23 BP 134 / 79; Pulse 71; Resp 18; Pulse Ox 100% on R/A; ld1 12:07 Body Mass Index 30.04 (79.38 kg, 162.56 cm) hb 12:07 Pain Scale: Adult hb 12:33 Pain Scale: Adult ld1 MDM: 12:10 Patient medically screened. snw 15:07 Differential diagnosis: gastritis, gastroesophageal reflux disease, GI Bleed, snw non-specific abd pain. Data reviewed: vital signs, nurses notes, lab test result(s), radiologic studies. I considered the following discharge prescriptions or medication management in the emergency department Medications were administered in the Emergency Department. See MAR. Counseling: I had a detailed discussion with the patient and/or guardian regarding the historical points, exam findings, and any diagnostic results supporting the discharge/admit diagnosis, lab results, radiology results, the need for outpatient follow up, to return to the emergency department if symptoms worsen or persist or if there are any questions or concerns that arise at home. Special discussion: Based on the history and exam findings, there is no indication for further emergent testing or inpatient evaluation. I discussed with the patient/guardian the need to see the ecg technician for further evaluation of the symptoms. I discussed with the patient/guardian the need to see the primary care provider for further evaluation of the symptoms. 15:08 ED course: pt with hx of PE post CoVid vaccine so takes ASA q hs. snw 11/25 12:11 Order name: CBC with Diff; Complete Time: 12:38 snw 11/25 12:11 Order name: CMP; Complete Time: 13:01 snw 11/25 12:11 Order name: Lipase; Complete Time: 13:01 snw 11/25 12:11 Order name: Urine W/Microscopic (UAM); Complete Time: 12:38 snw 11/25 12:11 Order name: CT Abd/Pelvis - IV Contrast Only; Complete Time: 13:42 snw 11/25 12:11 Order name: IV Saline Lock; Complete Time: 12:11 snw 11/25 12:11 Order name: Labs collected and sent; Complete Time: 12:11 snw Administered Medications: 12:22 Drug: NS 0.9% IV 1000 ml IV at 1 bolus Per protocol; 1000 mL bolus Route: IV; Rate: 1 ld1 bolus; Site: right antecubital; 12:22 Drug: Famotidine IVP 20 mg IVP once; dilute with 10 mL 0.9% NaCl; give over 2 minutes ld1 Route: IVP; Site: right antecubital; 12:32 Drug: fentaNYL (PF) IVP 25 mcg IVP once Route: IVP; Site: right upper arm; ld1 14:32 Drug: Ciprofloxacin IVPB 400 mg 200 ml IVPB once over 60 mins Volume: 200 ml; Route: ph IVPB; Infused Over: 60 mins; Site: right upper arm; 14:32 Drug: Dicyclomine PO 20 mg PO once Route: PO; ph 15:27 Drug: NS 0.9% IV 1000 ml IV at 1 bolus Per protocol; 1000 mL bolus Route: IV; Rate: 1 kd3 bolus; Site: right upper arm; 15:28 Drug: Sucralfate PO 1 grams PO once; make a slurry please Route: PO; kd3 15:28 Drug: Promethazine PO 25 mg PO once Route: PO; kd3 15:28 Drug: Promethazine IVP 25 mg IVP once Route: IVP; Site: right upper arm; kd3 15:28 Drug: NS 0.9% IV 250 ml IV at bolus once Route: IV; Rate: bolus; Site: right upper arm; kd3 Disposition: 16:28 Co-signature as Attending Physician, Chaparro Painter MD I reviewed the patient's care rn provided by the Advanced Practice Provider and agree with the diagnosis and treatment plan. Disposition Summary: 11/25/22 15:07 Discharge Ordered Notes: Location: Home snw Condition: Stable snw Diagnosis - Left sided colitis with rectal bleeding snw Followup: snw - With: Emergency Department - When: As needed - Reason: Worsening of condition Followup: snw - With: Private Physician - When: 2 - 3 days - Reason: Recheck today's complaints, Continuance of care, Re-evaluation by your physician Discharge Instructions: - Discharge Summary Sheet snw - Rehydration, Adult snw - Colitis snw - [place] Diet snw Forms: - Medication Reconciliation Form snw - Thank You Letter snw - Antibiotic Education snw - Prescription Opioid Use snw - Patient Portal Instructions snw - Leadership Thank You Letter snw Prescriptions: - Proctofoam HC 1-1 % Rectal foam - apply 1 application RECTAL route every day at bedtime; 1 Unspecified; Refills: snw 0, Product Selection Permitted - Cipro 500 mg Oral Tablet - take 1 tablet ORAL route every 12 hours for 10 days; 20 tablet; Refills: 0, snw Product Selection Permitted - Flagyl 500 mg Oral tablet - take 1 tablet ORAL route every 8 hours for 7 days; 21 tablet; Refills: 0, snw Product Selection Permitted - dicyclomine 20 mg Oral tablet - take 1 tablet ORAL route 3 times per day; 30 tablet; Refills: 0, Product snw Selection Permitted Signatures: Dispatcher [employer] EDCely Gomez, SALESPERSON WIGS-C SALESPERSON WIGS-Csnw Chaparro Painter MD MD rn Hall, Patricia, RN RN ph Baxter, Heather, RN RN hb Sims, Lauren RN RN ld1 Princess Moreland RN RN kd3
[2022-11-25] MEDS ORDERED: SUCRALFATE 1 GM TABLET ONE (15:29)
[2022-11-25] MEDS ORDERED: PROMETHAZINE 25 MG TABLET ONE (15:30)
[2022-11-25] MEDS ORDERED: NA CHLORIDE 0.9% 250 ML ONE (15:35)
[2022-11-25] MEDS ORDERED: PROMETHAZINE INJ 25 MG/ML AMP ONE (15:35)
[2022-11-25 17:04] VITALS: TEMP 98.5
[2022-11-25 17:19] VITALS: O2SAT 100
[2022-11-25 17:22] VITALS: BP 134/79
== END 2022-11-25 16:23 | disposition home or self-care (01) ==
LOC: ER 11:52
DX: K51.511 Left sided colitis with rectal bleeding (principal); Z79.82 Long term (current) use of aspirin; Z98.82 Breast implant status
CPT/HCPCS: 85025; 81001; 36415; 83690; 80053; 74177; 99284; Q9967; J2550; Q0169; J3010; J0744; J7050; J7030 ×2

== ENCOUNTER 2023-02-19 07:55 | Day surgery (SDC) | payer BC ==
[2023-02-16 16:29] LABS: Hematocrit 36.9 % (36.0-45.0); Lymphocytes % 35.6 % (15.3-44.8); MCV 85.2 fL (80-100); MPV 7.3 fL (7.6-11.3); Platelets 387 thou/uL (152-406); RBC Red Blood Cell Count 4.32 M/uL (3.86-4.86)
--- NOTE | 2023-02-16 16:34 | RAD REPORT ---
EXAM DESCRIPTION: Wilfred Manriquez And Sadaf (2 Views)02/16/2023 4:11 pm CLINICAL HISTORY: Preop for cholecystectomy COMPARISON: None FINDINGS: The lungs appear clear of acute infiltrate. The heart is normal size IMPRESSION: No acute abnormalities displayed
[2023-02-16 16:45] LABS: Albumin 3.5 g/dL (3.4-5.0); Bilirubin Direct 0.2 mg/dL (0-0.2); Bilirubin Indirect, Calculated 0.5 mg/dL (0.2-0.8); Bilirubin Total 0.7 mg/dL (0.2-1.0); Potassium 4.1 mEq/L (3.5-5.1); Protein, Total 7.9 g/dL (6.4-8.2)
[2023-02-19] MEDS ORDERED: Ringers Lactate 1,000 ML IV ONE (08:12)
[2023-02-19] MEDS ORDERED: ROCURONIUM 50 MG/5 ML VIAL IV ONE (08:31)
[2023-02-19] MEDS ORDERED: NEOSTIGMINE 1 MG/ML -10 ML VIAL ONE (08:31)
[2023-02-19] MEDS ORDERED: GLYCOPYRROLATE 0.2 MG/ML SYR ONE (08:31)
[2023-02-19] MEDS ORDERED: ONDANSETRON 4 MG/2 ML VIAL ONE (08:31)
[2023-02-19] MEDS ORDERED: propofoL 200 MG/20 ML VIAL IV ONE (08:32)
[2023-02-19] MEDS ORDERED: MIDAZOLAM HCL 2 MG/2 ML INJ ONE (08:32)
[2023-02-19] MEDS ORDERED: FENTANYL CITR 100 MCG/2 ML ONE (08:32)
[2023-02-19] MEDS ORDERED: LIDOCAINE 2% MPF 5 ML VIAL ONE (08:33)
[2023-02-19] MEDS ORDERED: SCOPOLAMINE HYDROBROMIDE PATCH TD ONE (08:57)
[2023-02-19] MEDS: CEFOXITIN SODIUM 1 GM/VIAL ONE ×2 (09:01→09:10)
--- NOTE | 2023-02-19 09:45 | P.BOP ---
Preoperative diagnosis: RUQ abd pain, acute cholecystitis, biliary dyskinesia Postoperative diagnosis: same Primary procedure: Laparoscopic cholecystectomy Estimated blood loss: <10cc Specimen: gb Findings: as above Anesthesia: General Complications: None Transferred to: Recovery Room Condition: Good
[2023-02-19 10:07] VITALS: O2SAT 100
[2023-02-19] MEDS ORDERED: HYDROCODONE/APAP 7.5/325 MG TAB PO ONE (10:41)
[2023-02-19] MEDS ORDERED: HYDROCODONE/APAP 7.5/325 MG TAB ONE (10:45)
--- NOTE | 2023-02-19 11:05 | OP ---
Date of Procedure: 02/19/2023 Surgeon: Jesse Romero MD Preoperative Diagnoses: Right upper quadrant abdominal pain, acute cholecystitis, biliary dyskinesia . Postoperative Diagnoses: Right upper quadrant abdominal pain, acute cholecystitis, biliary dyskinesi a. Procedure: Laparoscopic cholecystectomy. Estimated Blood Loss: Less than 10 cc. Anesthesia: General plus local. Finding: As above. Complications: None. Indications: This is a case of a 47-year-old patient who came to us with recurrent epigastric right upper quadrant pain. Workup was done shows bladder dyskinesia with duplication of symptoms on challe nge. Options were discussed with the patient that include also laparoscopic possible open cholecyste ctomy with benefits, alternatives, and risks including, but not limited to, infection, bleeding, neymar ge to adjacent structures, anesthesia complication, choledocholithiasis, bile leak, pancreatitis, GA, and even . She also understands this may not relieve any symptoms. She might need more than o ne surgical intervention. She understood, signed a consent. Description Of Procedure: Patient was brought to the operating room, placed in supine position. Ane sthesia was done without complication. Abdominal area was prepped and draped in the usual sterile fa shion. Local anesthesia was applied followed by sharp incision of the skin in the infraumbilical reg ion. Incision was carried down to fascia, which was opened under direct vision. Peritoneum was enco untered, opened under direct vision. Vicryl #1 placed inside the fascia. Megan trocar was carefull y introduced. Pneumoperitoneum was obtained. I placed 3 more trocars, 5 mm each one of them in epig astric right upper quadrant area under direct visualization. This allowed me to put a grasper in the fundus of the gallbladder, another grasper in the infundibulum retracting the gallbladder in the inf erolateral fashion exposing the triangle of Calot, obtaining critical view. Cystic duct and cystic a rtery were clearly isolated, freed circumferentially and a connection between those and the gallbladd er were clearly identified. I proceeded to ligate those by using at least 3 clips proximal, 1 clip d istal, ligation in the middle. Same was done with the cystic artery. No bile leak. No bleeding. T he gallbladder was removed from liver using Bovie cauterizer and removed from abdominal cavity using EndoCatch through the umbilical incision. Area was inspected once again. No bile leak. No bleeding . At that moment, I proceeded to remove the trocars under direct vision. Deflated pneumoperitoneum. Closed the fascia with #1 Vicryl, irrigated subcutaneous tissue, closed that with 3-0 chromic and t he skin in a subcuticular fashion with Steri-Strips on top. Sponge counts and instrument counts were correct. The patient tolerated the procedure well. Patient sent to Recovery in stable condition. LINH/SAL Voice ID: [id number] Report ID: [id number]
--- NOTE | 2023-02-19 11:05 | DS ---
Diagnoses: Right upper quadrant abdominal pain, acute cholecystitis, biliary dyskinesia. Procedure: Laparoscopic cholecystectomy. Disposition: Home. Activity: As tolerated. No heavy lifting. Plan: Follow up in my office in 1 week. Call for appointment at [phone]. Keep area dry for 48 luis antonio rs, then may shower. Keep Steri-Strip intact. LINH/SAL Voice ID: [id number] Report ID: [id number]
--- NOTE | 2023-02-19 12:33 | EKG ---
Test Date: 2023-02-16 Test Time: 16:50:55 Cloud Engineer: JAUN MEASUREMENT RESULTS: Intervals: Rate: 75 MT: 176 QRSD: 66 QT: 384 QTc: 428 [place]: P: 38 MT: 176 QRS: 42 T: 36 INTERPRETIVE STATEMENTS: Normal sinus rhythm Low voltage QRS Borderline ECG No previous ECG available for comparison Electronically Signed On 02-19-23 12:27:33 NIB ADJUSTER by Cliff Wolf
[2023-02-19 13:10] VITALS: BP 93/80; TEMP 97.3
== END 2023-02-19 11:29 | disposition home or self-care (01) ==
LOC: OR 07:55
PROVIDERS: ATTEND Surgery
PROC: 0FT44ZZ Resection of Gallbladder, Percutaneous Endoscopic Approach (ICD-10-PCS; principal; 2023-02-19 09:15)
DX: K80.10 Calculus of gallbladder with chronic cholecystitis without obstruction (principal); K82.8 Other specified diseases of gallbladder; R10.11 Right upper quadrant pain; Z79.82 Long term (current) use of aspirin
CPT/HCPCS: 93005; 85025; 80048; 36415; 80076; 88304; 83690; 71046; 47562; J2704; J2710; J2001; J2250; J3010; J0694; J2405; J7120